=== PATIENT | male | born 1970 | race Caucasian/White ===

== ENCOUNTER 2019-07-18 09:35 | Outpatient (CLI) | payer OTHER, SELFPAY ==
--- NOTE | 2019-07-18 08:36 | DI.RAD_ITS ---
EXAM: XR PELVIS AP INDICATION: R ESCOBAR planning. COMPARISON: No exams were available for comparison TECHNIQUE: 2D digital imaging was performed. FINDINGS: In the right hip, there is moderate joint space narrowing and subchondral sclerosis. Mild spurring i s seen of the acetabulum. In the left hip, there is mild joint space narrowing. The bones appear no rmally mineralized. Vascular calcifications are seen in the soft tissues. IMPRESSION: Osteoarthritis of the hips, right greater than left.
== END 2019-07-18 09:55 ==
PROVIDERS: PCP Family Medicine; Visit Provider Student in an Organized Health Care Education/Training Program
DX: M16.0 Bilateral primary osteoarthritis of hip (principal)
CPT/HCPCS: 72170

== ENCOUNTER 2019-08-01 01:10 | Outpatient (CLI) | payer OTHER, SELFPAY ==
--- NOTE | 2019-08-01 13:15 | DI.RAD_ITS ---
EXAM: RF JOINT INJECTION FLUORO GUID CLINICAL HISTORY: R HIP INJ UNDER FLUORO, RT HIP PAIN, M25.551 TECHNIQUE: Fluoroscopy was utilized by Dr. Carty during right hip injection. COMPARISON: No exams were available for comparison FINDINGS: Hard copy shows intraarticular injection in the right hip. Fluoro time 0.05 minutes. IMPRESSION:
--- NOTE | 2019-08-01 13:23 | W.PROCNOTE ---
Date of service: 08/01/19 Time of Service: 13:23 Procedure Note Date of procedure: 08/01/19 Procedure: Right Hip Injection with Fluoroscopic Guidance Surgeon/Proceduralist/Physician: Omer Carty Procedure Diagnosis: Right Hip Osteoarthritis Procedure Indications: Jaden has had persistent pain of the RIGHT hip and groin. Noninvasive measures have been tried. To serve as both diagnostic and therapeutic, an injection under fluoroscopy was recommended. I had discussed the risks of the procedure and the patient elected to proceed. Procedure Description: Jaden was greeted in the flouroscopy room. The correct side was identified and the consent was reviewed with the patient and signed. The patient was then placed in the supine position on the fluoroscopy table. The RIGHT hip was then prepped with Chloraprep. The anterolateral injection starting point was identiifed by bony landmarks and fluoroscopy. The skin and soft tissue in the tract of the injection was anesthetized with 1% Lidocaine. A spinal needle was then inserted deep into the hip joint at the level of the lateral femoral neck under fluoroscopic guidance. A small amount of Omnipaque solution was injected to confirm intraarticular placement. Once confirmed, the hip was injected with 6cc of 0.5% Bupivicaine and 80mg of Depo-Medrol. A bandaid was placed on the injection site. The patient tolerated the procedure well and noted improvement in pre-injection pain.
[2019-08-01] MEDS: Omnipaque 300 MG/ML 10 ML BTL IJ (13:28)
[2019-08-01] MEDS: methylPREDNISolone ACETATE 80 MG/ML VIAL IM (13:32)
[2019-08-01] MEDS: Bupivacaine 0.5% Pres-Free 10 ML VIAL 6 ML IJ (13:33)
== END 2019-08-01 01:30 ==
PROVIDERS: PCP Family Medicine; Visit Provider Student in an Organized Health Care Education/Training Program
DX: M25.551 Pain in right hip (principal); M16.11 Unilateral primary osteoarthritis, right hip
CPT/HCPCS: 20610; 77002; J1040

== ENCOUNTER 2019-08-08 10:52 | Outpatient (CLI) | payer OTHER, SELFPAY ==
[2019-08-08 12:13] LABS: TSH 3.73 uIU/mL (0.36-3.74)
== END 2019-08-08 11:12 ==
PROVIDERS: PCP Family Medicine; Visit Provider Family Medicine
DX: E03.9 Hypothyroidism, unspecified (principal)
CPT/HCPCS: 36415; 84443

== ENCOUNTER 2019-11-22 08:21 | Outpatient (CLI) | payer OTHER, SELFPAY ==
[2019-11-22 11:16] LABS: HCT 43.1 % (40.0-50.0); HGB 14.3 g/dL (13.5-17.5); Mean Corp. HGB Concentration 33.2 g/dL (32.0-36.0); Mean Corpuscular Hemoglobin 28.5 pg (27.0-33.0); Mean Platelet Volume 8.8 fL (8.0-11.0); Platelet Count 320 x1000/uL (130-400); RBC 5.01 m/cumm (4.50-6.00); RBC Distribution Width 12.9 % (11.8-14.1); White Blood Cell Count 5.79 k/cumm (4.4-10.8)
[2019-11-22 12:32] LABS: Anion Gap 7.7 mmol/L (3-11); BUN 21 mg/dL (7-18); CO2 24.3 mmol/L (21.0-32.0); CREATININE 0.82 mg/dL (0.70-1.30); Calcium 8.7 mg/dL (8.5-10.1); Chloride 105 mmol/L (98-107); Glucose 100 mg/dL (74-106); Potassium 4.4 mmol/L (3.5-5.1); Sodium 137 mmol/L (136-145)
[2019-11-23 12:33] LABS: COVID-19 RT-PCR UVMMC Result Negative (Negative)
== END 2019-11-22 08:41 ==
PROVIDERS: PCP Family Medicine; Visit Provider Student in an Organized Health Care Education/Training Program
DX: M25.551 Pain in right hip (principal); M16.11 Unilateral primary osteoarthritis, right hip; Z11.59 Encounter for screening for other viral diseases; Z01.818 Encounter for other preprocedural examination; Z01.812 Encounter for preprocedural laboratory examination
CPT/HCPCS: 36415; 80048; 85027; 86850; 86900; 86901; U0003

== ENCOUNTER 2019-11-26 06:04 | Observation (INO) | payer OTHER, SELFPAY ==
[2019-11-26] VITALS (9 sets, daily range): BP systolic 99–140; BP diastolic 56–89; PULSE 55–71; RESP 11–21; TEMP 35.1–36.6; O2SAT 92–100
[2019-11-26] MEDS: Celecoxib 200 MG CAP 400 MG PO (06:39)
[2019-11-26] MEDS: Acetaminophen 500 MG TAB 1000 MG PO ×2 (06:39→14:14)
[2019-11-26] MEDS: Lactated Ringers 1,000 ML 80 ML IV (07:00)
--- NOTE | 2019-11-26 07:28 | PDOC.DSDIS_ITS ---
Discharge Plan Disposition Patient Disposition: HOME Condition: Good Discharge Details Reason For Visit: (R) TOTAL HIP Admit Date/Time: 11/26/19 06:04 Admit Provider: Omer Carty Attending Provider: Omer Carty Primary Care Provider: Guy Saini [facility] Course Hospital Course: Patient was admitted to the medical/surgical floor following the procedure. The surgery was tolerated well without any notable medical, surgical, or anesthetic complications. Mobilization began postoperatively. He was voiding spontaneously. Vitals were stable. Physical therapy worked with the patient and was cleared for discharge home. No acute medical issues. Pain was contro lled on oral regimen. Home Meds and New Rx's Prescriptions: New aspirin 81 mg tablet,delayed release (DR/EC) 81 mg PO BID Qty: 60 RF: 0 acetaminophen 500 mg tablet 1,000 mg PO Q8H PRN (Reason: pain) Qty: 90 RF: 3 pantoprazole 40 mg tablet,delayed release (DR/EC) 40 mg PO DAILY Qty: 30 RF: 0 ibuprofen 600 mg tablet 600 mg PO TID PRNQty: 90 RF: 3 oxycodone 5 mg tablet 5 mg PO Q4H Qty: 18 RF: 0 Continued metoprolol succinate 50 mg tablet extended release 24 hr 50 mg PO HS RF: 0 turmeric root extract 500 mg capsule 500 mg PO DAILY RF: 0 levothyroxine 150 mcg capsule 150 mcg PO DAILY Qty: 90 RF: 3 Discharge Instructions Additional Instructions: Dr. Carty's Total Hip Discharge Instructions Activity: The most important activity is to walk. You should try to take short walks a few times a day. You have no restrictions on movement or positioning, but do not try to force what you do. You will find some stiffness and weakness with hip flexion (lifting your knee). Do not try to strengthen this too early, continue to practice walking and stairs and this will come. - Outpatient physical therapy can be helpful to help return you to a normal gait and improve your flexibility and strength. This can start around 2 weeks. For most patients, it?s not necessary. Usually this is determined at the time of discharge or at the first post-operative visit. - You should wear the ALEA hose on both legs for 2 weeks. You may remove those at night. These prevent blood pooling and swelling. Dressing: Keep the surgical dressing in place for at least one week, although it may stay in place untill follow-up. It may get wet after 3 days but avoid soaking the dressing. If it gets wet, just lightly pat dry. Most people prefer to cover the dressing with some ClingWrap, Saran Wrap, to keep it dry. After the first week it may be removed if desired and then replaced with light gauze and tape or nothing. It is important to always keep some gauze or the dressing between skin folds, especially when you are sitting, so the incision is not folded over on itself at the belly fold. Medications: - You should take Tylenol and an anti-inflammatory Ibuprofen as your primary pain control medications - You have been prescribed a stronger pain medication Oxycodone for breakthrough pain, take as needed as prescribed. - You have also been prescribed a stomach acid reduction agent Pantoprozole to help reduce stomach acid and reflux. - You will be taking Aspirin 81mg twice a day for DVT prevention unless instructed otherwise. - If you have constipation you should take Colace or Miralax (both [id number]). It takes most people 3-4 days to have a bowel movement. Follow-up: 2 weeks. If you have any acute concerns or questions, please do not hesitate to contact the office at [phone]. You may contact Dr. Carty with any questions after hours through the hospital at [phone] or on his cell phone at [phone]. Referrals: Omer Carty MD [ [facility] STAFF PHYSICIAN] - Activity:: Activity as Tolerated Equipment/Supplies:: Walker Diet:: As Tolerated DS: Diagnosis Discharge Diagnosis (1) Osteoarthritis of right hip: Status: Acute
[2019-11-26] MEDS: ceFAZolin 2 GM/50 ML BAG IVPB (08:04)
[2019-11-26] MEDS: Bupivacaine 0.25% Pres-Free 30 ML VIAL (08:32)
[2019-11-26] MEDS: Ketorolac 30 MG/ML VIAL (08:33)
--- NOTE | 2019-11-26 09:09 | DI.RAD_ITS ---
EXAM: XR HIP RT IN OR CLINICAL HISTORY: OA RIGHT HIP TECHNIQUE: 2D and realtime digital imaging was performed. Fluoroscopy was provided in the OR COMPARISON: No exams were available for comparison FINDINGS: C-arm fluoroscopy was utilized by Dr. Carty during right total hip joint replacement. Hard copy s hows placement of total hip joint replacement on the right. Fluoroscopy time, 45.2 seconds. IMPRESSION: RADIATION DOSE DELIVERED: Total DLP
[2019-11-26] MEDS: oxyCODONE 5 MG TAB PO (10:42)
[2019-11-26] MEDS: Pantoprazole 40 MG TABCR PO (11:01)
--- NOTE | 2019-11-26 11:05 | IN_ITS ---
Date of service: 11/26/19 Time of Service: 11:05 PT Notes Visit Reasons: (R) TOTAL HIP Physical Therapy Inpatient Initial Evaluation Date: 11/26/2019 Referring Doctor: Omer Carty MD PT Orders: PT CONSULT: Status post Ortho surgery. Status post right ESCOBAR. Precautions: Fall. Standard. WBAT on R LE. Patient Profile/Admitting Diagnosis: Eugenio is a 49-year-old male with primary unilateral osteoarthritis of the right hip and is status post right total hip arthroplasty on postoperative day 0. PMHX: Medical History GERD (gastroesophageal reflux disease) (Chronic) Sami's thyroiditis (Acute) History of tobacco use (Acute) 20 years of use Hypertension (Chronic) Hypothyroid (Chronic) Sarcoidosis (Acute) Spondylolisthesis (Acute) Surgical History History of endoscopy (Acute) 2010, [facility] Hx of colonoscopy (Chronic) 2010, [facility] Social History/Home Situation: Patient lives with and 2 daughters in a 2 floor house with 10 steps to enter and rails on both sides. He has another flight of steps to the second floor of the house where their bedroom is that he states that he can stay on the first floor if he needs to while recovering from the surgery. He is independent with all aspects of ADLs without the need for an ambulatory device nor adaptive equipment. He hopes to go back full-time at work once he is safe to do so. Equipment Owned/DME: Bilateral axillary crutches Subjective: When patient was asked to stand up from the edge of the bed, This feels awesome! I have never felt this great standing up for a long time, I feel great! Objective: General Observation: Mepilex Ag over surgical incision. IV in the R UE. Mental Status: Alert and oriented x4 Pain: Patient reports cramping pain along the length of the middle thigh on the right side that subsided with ambulation activity. ROM: Right Upper Extremity: Shoulder Flexion WFL. Shoulder abduction WFL. Elbow flexion WFL. Wrist flexion WFL. Opening and closing of hand WFL. Left Upper Extremity: Shoulder Flexion WFL. Shoulder abduction WFL. Elbow flexion WFL. Wrist flexion WFL. Opening and closing of hand WFL. Right Lower Extremity: Hip flexion WFL. Hip abduction WFL. Knee flexion WFL. Ankle dorsiflexion WFL. Ankle plantarflexion WFL. Left Lower Extremity: Hip flexion WFL. Hip abduction WFL. Knee flexion WFL. Ankle dorsiflexion WFL. Ankle plantarflexion WFL. Strength: Right Upper Extremity: Shoulder flexors 5/5. Shoulder abductors 5/5. Elbow flexo rs 5/5. Elbow extensors 5/5. Yeast Pumper strong. Left Upper Extremity: Shoulder flexors 5/5. Shoulder abductors 5/5. Elbow flexors 5/5. Elbow extensors 5/5. Yeast Pumper strong. Right Lower Extremity: Hip flexors 4-/5. Hip abductors 4-/5. Knee flexors 4/5. Knee extensors 4/5. Ankle dorsiflexors 5/5. Ankle plantarflexors 5/5. Left Lower Extremity:Hip flexors 5/5. Hip abductors 5/5. Knee flexors 5/5. Knee extensors 5/5. Ankle dorsiflexors 5/5. Ankle plantarflexors 5/5. Sensation: Intact as to pain and pressure on bilateral lower extremities. Bed Mobility/Transfers: Supine to sit modified independent with HOB flat Sit to supine modified independent with [facility] flat Sit to stand supervision, minimal verbal cueing to use both hands for support for push off, requires use of front wheeled walker Stand to sit supervision, minimal verbal cueing to use both hands for support to control descent Bed to chair supervision, minimal verbal cueing to use both hands for support for push off, requires use of front wheeled walker Chair to bed supervision, minimal verbal cueing to use both hands for support for push off, requires use of front wheeled walker Gait: Patient tolerated level surface ambulation 150 feet using front wheeled walker with step through gait pattern requiring all standby assist and wheelchair follow of PT. No report of lightheadedness or dizziness received throughout activity. Balance: Static Sitting: Normal Dynamic Sitting: Normal Static Standing: Fair Dynamic Standing: Fair Special Tests: Mobility Limitations Standardized Measure [facility] AM-PAC 6 clicks Basic Mobility Inpatient Short Form: Raw Score: 23 CMS Score: 11% deficit Informed Consent/Education: Patient instructed in purpose of PT consult and plan of care. Assessment: Eugenio demonstrates the need for an assistive ambulatory device for all mobility ADL performance, achiness and cramping pain on the right thigh, and functional mobility decline due to postoperative status. Eugenio is a 49-year-old male with primary unilateral osteoarthritis of the right hip and is status post right total hip arthroplasty on postoperative day 0. Patient presents with clinical signs and symptoms consistent with current/admitting diagnoses that have resulted to mobility limitations, gait instability, and generalized weakness, as demonstrated by the following impairment level findings: 1. Decreased strength to right hip major muscle groups 2. Impaired standing balance 3. Impaired activity tolerance Impairments are contributing to the following functional limitations: 1. Inability to safely ambulate without assistive device and physical assistance 2. Increase completion time for mobility ADL performance 3. Increased fall risk 4. Inability to negotiate steps alone safely Patient is assessed as a 15787 moderate complexity based on the following: History: 49-year-old male with impairment level findings, functional limitations, and past medical history as listed above Examination: Demonstrable impairment in strength, balance, and mobility level n with underlying impairments and functional limitations as documented above Presentation:Evolving Decision Makin moderate complexity Goals: Goals X 1 day 1. Supine-Sit independent 2. Sit-Supine independent 3. Sit-Stand independent 4. Stand-Sit independent 5. Bed-Chair independent 6. Chair-Bed independent 7. Independent gait on level surface with use of least restrictive device for at least 300 feet without report of pain nor dyspnea 8. Independent stair negotiation while holding onto bilateral rails for at least 10 steps without report of pain nor dyspnea 9. Independent with home exercise program 10. Good static and dynamic standing balance/tolerance Plan of Care/Treatment Plan: 1-2x/day, 7 days/week x 1 week. Plan of care has been reviewed with the [facility] providing the service under Physical Therapy direction. Initiate Physical Therapy intervention for strengthening, bed mobility, transfers, gait, stairs, balance training, use of assistive device. PT Intervention: Session today consisted of initial physical therapy evaluation as well as education and training on mobility ADL performance using front wh eeled walker. DISCHARGE RECOMMENDATIONS: Discharge to home when medically cleared. Will benefit from the use of a front wheeled walker to maximize independence in the home setting. May benefit from skilled physical therapy services according to orthopedic surgeon's timeline recommendations. Patient will be educated and trained on home exercise program per ESCOBAR exercise protocol. TREATMENT CODE/TIME: 03517 x 30 minutes beginning at 11:05 AM. Thank you very much for this referral. Dejah Florence PT, DPT, CLT [facility] [place], [place]
[2019-11-26] MEDS: ceFAZolin 1 GM/50 ML BAG IVPB (12:12)
--- NOTE | 2019-11-26 12:23 | W.PM.DS.N ---
Date of service: 11/26/19 Time of Service: 12:23 DS: Diagnosis Discharge Diagnosis (1) Osteoarthritis of right hip: Status: Acute Discharge Plan Disposition Patient Disposition: HOME Condition: Good Discharge Details Reason For Visit: (R) TOTAL HIP Admit Date/Time: 11/26/19 06:04 Admit Provider: Omer Carty Attending Provider: Omer Carty [facility] Course: Patient was admitted to the medical/surgical floor following the procedure. The surgery was tolerated well without any notable medical, surgical, or anesthetic complications. Mobilization began postoperatively. He was voiding spontaneously. Vitals were stable. Physical therapy worked with the patient and was cleared for discharge home. No acute medical issues. Pain was controlled on oral regimen. Home Meds and New Rx's Prescriptions: New aspirin 81 mg tablet,delayed release (DR/EC) 81 mg PO BID Qty: 60 RF: 0 acetaminophen 500 mg tablet 1,000 mg PO Q8H PRN (Reason: pain) Qty: 90 RF: 3 pantoprazole 40 mg tablet,delayed release (DR/EC) 40 mg PO DAILY Qty: 30 RF: 0 ibuprofen 600 mg tablet 600 mg PO TID PRNQty: 90 RF: 3 oxycodone 5 mg tablet 5 mg PO Q4H Qty: 18 RF: 0 Continued metoprolol succinate 50 mg tablet extended release 24 hr 50 mg PO HS RF: 0 turmeric root extract 500 mg capsule 500 mg PO DAILY RF: 0 levothyroxine 150 mcg capsule 150 mcg PO DAILY Qty: 90 RF: 3 Discharge Instructions Additional Instructions: Dr. Carty's Total Hip Discharge Instructions Activity: The most important activity is to walk. You should try to take short walks a few times a day. You have no restrictions on movement or positioning, but do not try to force what you do. You will find some stiffness and weakness with hip flexion (lifting your knee). Do not try to strengthen this too early, continue to practice walking and stairs and this will come. - Outpatient physical therapy can be helpful to help return you to a normal gait and improve your flexibility and strength. This can start around 2 weeks. For most patients, it?s not necessary. Usually this is determined at the time of discharge or at the first post-operative visit. - You should wear the ALEA hose on both legs for 2 weeks. You may remove those at night. These prevent blood pooling and swelling. Dressing: Keep the surgical dressing in place for at least one week, although it may stay in place untill follow-up. It may get wet after 3 days but avoid soaking the dressing. If it gets wet, just lightly pat dry. Most people prefer to cover the dressing with some ClingWrap, Saran Wrap, to keep it dry. After the first week it may be removed if desired and then replaced with light gauze and tape or nothing. It is important to always keep some gauze or the dressing between skin folds, especially when you are sitting, so the incision is not folded over on itself at the belly fold. Medications: - You should take Tylenol and an anti-inflammatory Ibuprofen as your primary pain control medications - You have been prescribed a stronger pain medication Oxycodone for breakthrough pain, take as needed as prescribed. - You have also been prescribed a stomach acid reduction agent Pantoprozole to help reduce stomach acid and reflux. - You will be taking Aspirin 81mg twice a day for DVT prevention unless instructed otherwise. - If you have constipation you should take Colace or Miralax (both aytx-oao-aptvzzo). It takes most people 3-4 days to have a bowel movement. Follow-up: 2 weeks. If you have any acute concerns or questions, please do not hesitate to contact the office at [phone]. You may contact Dr. Carty with any questions after hours through the hospital at [phone] or on his cell phone at [phone]. Referrals: Omer Carty MD [ [facility] STAFF PHYSICIAN] - Activity:: Activity as Tolerated Equipment/Supplies:: Walker Diet:: As Tolerated Discharge Orders Discharge Orders: Discharge Order (Routine); Ordered 11/26/19 Ordered By: Omer Carty DS: Summary Status at Discharge Functional status at discharge: uses cane/walker Overall status at discharge: patient is progressing back to baseline Mental Status: mental status grossly normal Speech and Movement: speech and movement normal Mood: congruent mood Affect: normal affect Exam Narrative Exam Narrative: Comfortable. Resting in the chair. No pain to ER/IR of the hip. Palpable DP/PT. Psych Mental Status: mental status grossly normal Speech and Movement: speech and movement normal Mood: congruent mood Affect: normal affect DS: Data Vitals/I&O Vitals and I&O: Vital Signs Temperature 36.4 C L 11/26/19 10:44 Temperature Source Tympanic 11/26/19 10:44 Pulse 55 L 11/26/19 10:44 Pulse Rhythm Regular 11/26/19 06:05 Respiratory Rate 14 11/26/19 10:44 Respiratory Effort Non-Labored 11/26/19 06:05 Respiratory Depth Normal 11/26/19 06:05 Respiratory Pattern Normal 11/26/19 06:05 Blood Pressure 130/87 11/26/19 10:44 Pulse Oximetry 100 11/26/19 10:44 Oxygen Delivery Method Room Air 11/26/19 10:44 Oxygen Flow Rate 0 11/26/19 10:44 Pain Level 2 11/26/19 11:42 Intake & Output 11/25/19 11/26/19 11/26/19 23:59 11:59 23:59 Intake Total 870 / 870 Output Total 100 / 100 Balance 770 / 770 Weight 86 kg Intake: IV 870 / 870 Output: Estimated Blood Loss 100 / 100 Other: Emesis Description None [facility] Medical History GERD (gastroesophageal reflux disease) (Chronic) Sami's thyroiditis (Acute) History of tobacco use (Acute) 20 years of use Hypertension (Chronic) Hypothyroid (Chronic) Sarcoidosis (Acute) Spondylolisthesis (Acute) Surgical History History of ankle surgery (Acute) R ankle bone chip removal w/spinal History of endoscopy (Acute) 2010, [facility] Hx of colonoscopy (Chronic) [facility] Family History Mother Hyperlipidemia Hypertension Father Hyperlipidemia Sister Hypertension Brother No problems noted. Daughter No problems noted. Daughter No problems noted. Maternal Grandfather , age 70 Hyperlipidemia Stroke Paternal Grandfather , age 82 Alcohol abuse Cancer Heart disease Hypertension Maternal Grandmother , age 85 Diabetes Social History Smoking/Tobacco Use Status: Former Tobacco Use Second Hand Exposure: Yes Alcohol Intake: current Alcohol Intake frequency: a few times a week Drug use: Never Caregiver/Support person: No Household members: spouse and children Communication Needs: None Do you need help understanding health information?: Never Pets and animals: Yes Pets and animals: dog(s) Sexually active: Yes Do you think of yourself as: straight/heterosexual Current gender identity: male What is your relationship status?: How often do you talk on the phone with friends or family?: three or more times per week How often do you get together with friends or relatives?: decline to answer How often do you attend pentecostalism or anabaptist services?: 1-3 times per year Do you belong to any clubs or organized social groups?: yes Panel score (0-1 are the most socially isolated patients): 3 What type of physical activity do you participate in: walking Duration: 15-30 minutes/day Frequency: 3-4 times per week Maria L/Anabaptism: No preference Special maria l needs: No Seatbelt use: always Drive intox or ride w/intox route cdl driver: No
--- NOTE | 2019-11-26 14:09 | ROE_ITS ---
Date of service: 11/26/19 Time of Service: 09:21 Operative Note Operative Note DATE OF PROCEDURE: 11/26/19 PRE-OP DIAGNOSIS: Right Hip Osteoarthritis POST-OP DIAGNOSIS: same PROCEDURE: Right Anterior Total Hip Arthroplasty SURGEON: Omer Carty APPLICATION DEVELOPMENT DIRECTOR: Mckay Duckworth ANESTHESIA: spinal ESTIMATED BLOOD LOSS: 150 PATHOLOGY: none sent COMPLICATIONS: None Patient was transported to: PACU Patient's condition: stable Implants: 1. Depuy [place] Acetabular Component, 50 mm 2. Depuy Acetabular Liner, 50 x 32 mm 3. Depuy Corail coxa vara femoral Stem, Size 11 4. Depuy Altrx Ceramic Femoral Head, Size 32+5 mm Indications: I have seen Eugenio in clinic for symptoms of hip arthritis, confirmed with radiographic findings. He has exhausted nonoperative methods and was having significant limitations in daily function and desired better function and less pain. I discussed the technical details of a hip replacement. I explained the risks of the procedure to include, but not limited to, bleeding, infection, pain, stiffness, fracture, damage to nerves and vessels, damage to muscles and tendons, loosening, instability, leg length inequality, need for repeat procedure, blood clot and cardiopulmonary demise. Despite these risks, Eugenio elected to proceed. Findings: There was significant signs of arthritis throughout most notably of the superior acetabulum and the superior aspect of the femoral head. Procedure Description: Eugenio was greeted in the preoperative holding area where the correct side was identified and marked. The consent was reviewed with the patient and signed. The history and physical was updated. All questions were answered. He was taken back to the operating room. A spinal anesthestic was then administered. The patient was placed into the supine position on the operating room table. The patient was then positioned onto the ARCH table. Both feet were wrapped with Webrill cotton wrap along with Coban. The feet were placed in specialized boots for the ARCH table, well seated within the boot and secured. SCDs were applied. The patient was then slid down onto a peroneal post and the nonoperative leg was secured in a leg hale attached to the table. The operative side was placed into the ARCH table attachment and bed height and positioning was secured. A preoperative AP pelvis was obtained to serve as a reference for determining leg lengths. Prophylactic antibiotics in the form of cefazolin were administered. 1g of Tranxemic Acid was given intravenously within 30 minutes of incision. The right leg was then prepped with Chloraprep and draped in a standard fashion. A second prep with Chloraprep was performed prior to placement of a shower-curtain type drape with Iodine impregnated skin protection. A timeout to confirm correct identity, side and site, procedure, allergies, anesthesia, and medical concerns was performed. An obliquely oriented incision was made starting lateral to the ASIS and running distal over the Tensor Fascia Aga (TFL) muscle belly toward the fibular head, approximately 10cm. The skin and soft tissue was dissected sharply, through Jose?s fascia, and to the fascia of the TFL. With the fascia and superior border of the IT band identified, the fascia was incised with a new knife just above any perforators from the IT band. The TFL muscle belly was bluntly dissected away from the fascia and moved laterally. The fat between TFL and rectus was identified to ensure the dissection was not within the TFL. Blunt dissection created space between abductors and the capsule and retractor was placed over the lateral femoral neck. The fibers of the rectus femoris tendon were identified and these were freed from the anterior capsule. A second cobra retractor was placed around the medial femoral neck. The TFL was further retracted laterally to show the deep fascia. Careful dissection through this layer identified three main crossing vessels of the lateral femoral circumflex. These were cauterized in multiple locations and then cut without any noticeable bleeding. The TFL was further released bluntly from the deep fascia to expose anterior hip capsule and fat the Chandra orthopaedic retractor was then placed beneath the TFL and against sartorius and medial soft tissues to protect and retract the soft tissues. A T-capsulotomy was then performed starting at the superior lateral acetabulum and moving distally to the intertrochanteric ridge. These capsular flaps were tagged with a No. 1 Ethibond and elevated from within. The capsular flaps were released to the shoulder of the lateral neck and to the lesser trochanter to give excellent visualization of the proximal femur. A neck osteotomy was performed using an oscillating saw based on preoperative templates. This cut started in the shoulder and of the lateral neck and exited medially. The saw was at all times directed medially to avoid injury to the greater trochanter. 6cm of traction was applied to the leg and the osteotomy opened. The femoral head was removed with a corkscrew, making sure to protect the TFL on its exit. This was measured on the back table to determing the starting reamer size. Portions of the rectus obscuring visualization were minimally elevated off the superior acetabulum. An anterior retractor was placed over the anterior wall between capsule and labrum and attached to the Gripper retraction system. A posterior retractor was placed similarly. This provided excellent visualization. The contents of the cotyloid fossa were removed with electrocautery and the labrum was removed with a knife. There was significant chondromalacia of the superior acetabulum. Acetabular reaming began with a 46mm reamer. This first reaming was directed anterior to posterior and medial to get down to the true floor. This was inspected and reamed until the true floor was reached. The anterior retractor was then released and entry and exit was provided by traction on the capsular flaps. I then reamed sequentially up to a 50mm reamer where good fit was obtained. The larger reamers were oriented based on anatomical reference of the anterior and lateral martinez to ensure proper abduction and anteversion. Pos itioning and size was confirmed with the fluoroscopy. A 50mm Depuy [place] acetabular component was selected. The deep tissues were irrigated. The acetabular component was then impacted in a position of about 40-45 degrees of abduction and 15-20 degrees of anteversion, using the patient?s anatomy as the ultimate landmark. Fluoroscopy was used to confirm this. There was excellent property technician of the acetabular component and the inserting handle was removed. The acetabular liner, Depuy [id number] polyethylene liner, was inserted and lined up with the tines of the acetabular component. There was no soft tissue interposition. The liner was then impacted into position and confirmed to be well-seated. A portion of the andrew-articular cocktail was then injected around the acetabulum into the capsule and periosteum. This cocktail consisted of 50cc of 0.25% Bupivicaine and 20cc of Exparel, expanded to a total of 120cc. Traction was released from the femur. The leg was rotated to 120 degrees. Any remaining medial capsule was released until the lesser trochanter was easily palpable. A Jenkins retractor was placed medially. The lateral capsule was further released into the shoulder to allow access to the greater trochanter. A Jenkins retractor was placed over the greater trochanter which allowed the trochanter to flip in front of the capsule for excellent exposure. The leg was brought down into maximal extension and 20 degrees of adduction while ensuring there was no impingement on the acetabulum. Any remnant capsule within the trochanter was released. Piriformis and obturator externis were identified and protected. There was excellent access to the proximal femur. The lateral neck remnant was removed with a rongeur. A blunt canal probe was used to identify the canal and trajectory for later broaching. A box osteotome initiated the broach course. A small curved rasp and a curved curette were used to work laterally. Broaching then began with a size 8 Corail broach. This was inserted manually around the trochanter and into the canal before mallet blows. The broach was seated to a few millimeters below the cut level based on the neck cut and the preoperative template. Sequential broaching was continued with the Yodo1 pneumatic broaching device until a tight fit was obtained with good rotational control of the femur. A trial coxa vara neck was inserted along with a +5 trial head. The leg was brought out of extension and adduction and then reduced with traction and internal rotation. The leg was stable anteriorly in a position of 30 degrees of extension and 90 degrees of external rotation. Fluoroscopy was used to ensure there was no fracture and the stem was seated well. Leg lengths were checked with an AP pelvis and pelvic reference points. Clinkle navigation system was used to confirm appropriate positioning and leg length and offset. Once content with the desired offset and leg lengths, the leg was brought back into extension, external rotation and adduction. The periosteum and surrounding tissue was injected with remaining portion of the andrew-articular cocktail. The proximal femur was irrigated as well as the deep tissues. The Depuy Corail coxa vara stem, size 11, was then manually inserted into the proximal femur making sure to control rotation. It was then malleted into position with light blows, giving breaks to allow bone expansion and decrease risk of fracture. The selected Depuy Altrx Ceramic Head, size 32+5mm, was then placed onto the clean and dry trunnion and secured with impaction onto the tapered fit. The leg was brought back out of extension and adduction and reduced with traction and internal rotation. Stability was confirmed with no shuck at 90 degrees of external rotation and 30 degrees of extension. No impingement through range of motion arc. Final x-ray images were obtained with fluoroscopy to confirm adequate positioning and no intraoperative fracture. The deep tissues were thoroughly irrigated with Irrisept chlorhexadine solution. The second dose of TXA 1g was administered intravenously. The capsule was then reapproximated with the previously placed Ethibond sutures. The TFL fascia was finally closed with a No. 2 Stratafix, barbed suture. Deep tissues were then reapproximated with 0 Vicryl and a running 2-0 Vicryl. The skin was closed with a running 4-0 Monocryl in a subcuticular fashion. This was reinforced with skin glue. A Mepilex silver dressing was applied. At the end of the case, all counts were correct. Eugenio was transferred to the hospital bed without difficulty and suffering no apparent complication. Eugenio has a good prognosis. Physical therapy will start today and without restrictions, weight-bearing as tolerated. Aspirin 81mg BID will be used for DVT prophylaxis.
--- NOTE | 2019-11-26 14:12 | PT.INTREAT ---
Date of service: 11/26/19 Time of Service: 14:13 PT Notes Visit Reasons: (R) TOTAL HIP Inpatient Physical Therapy Treatment Note [facility] Date: 11/26/19 PRECAUTIONS: WBAT R SUBJECTIVE: Jaden is agreeable to participating in PT. He is ready to be discharged to home. OBJECTIVE: PAIN: No c/o pain BED MOBILITY/TRANSFERS Sit-stand: I Stand-sit: I Bed-Chair: I Chair-bed: I GAIT Assistive Device: FWW B Axillary Crutches Weight bearing: WBAT R Assist: S Distance: 200' with FWW 200' with B axillary crutches Deviation: Step through gait pattern utilized STAIRS: Up/down 12?4 and 8?6 using B rails and a step over pattern, independently ASSESSMENT: Patient tolerated session well, demonstrating independence with sit<>stand transfers as well as stair negotiation. He also demonstrates good safety awareness and appropriate ml with use of axillary crutches with gait training. PLAN: As per primary PT TREATMENT CODE/TIME: 25 minutes; 14542 ?2
[2019-11-26] MEDS: Ibuprofen 800 MG TAB PO (14:13)
--- NOTE | 2019-11-26 14:15 | PDOC.CMPRO ---
- If Service Date Differs Date of service: 11/26/19 Time of Service: 14:15 Care Management Progress Note S/O: CM met with Jaden in the room, he states he needs a FWW which CM provided and requested PT assemble. Jaden states he has support at home including transportation. Jaden denies any additional needs at this time, and will follow up with as directed. A: Jaden is a 49 year old male admitted for a total right hip. P: Discharge home with family support and follow up with . FWW provided prior to discharge.
--- NOTE | 2019-11-27 08:48 | INDS_ITS ---
Date of service: 11/27/19 PT Notes Visit Reasons: (R) TOTAL HIP Physical Therapy Inpatient Discharge Summary Date: 11/27/2019 Date of service: 11/26/2019 only This is a clinical summary of care provided on the duration of dates listed above. No charge was made in the completion of this documentation. She is Referring Doctor: Omer Carty MD PT Orders: PT CONSULT: Status post Ortho surgery. Status post right ESCOBAR. Precautions: Fall. Standard. WBAT on R LE. Patient Profile/Admitting Diagnosis: Eugenio is a 49-year-old male with primary unilateral osteoarthritis of the right hip and is status post right total hip arthroplasty on postoperative day 1. PMHX: Medical History GERD (gastroesophageal reflux disease) (Chronic) Sami's thyroiditis (Acute) History of tobacco use (Acute) 20 years of use Hypertension (Chronic) Hypothyroid (Chronic) Sarcoidosis (Acute) Spondylolisthesis (Acute) Surgical History History of endoscopy (Acute) 2010, [facility] Hx of colonoscopy (Chronic) 2010, [facility] Social History/Home Situation: Patient lives with and 2 daughters in a 2 floor house with 10 steps to enter and rails on both sides. He has another flight of steps to the second floor of the house where their bedroom is that he states that he can stay on the first floor if he needs to while recovering from the surgery. He is independent with all aspects of ADLs without the need for an ambulatory device nor adaptive equipment. He hopes to go back full-time at work once he is safe to do so. Equipment Owned/DME: Bilateral axillary crutches Subjective: NT Objective: General Observation: NT Mental Status: NT Pain: NT ROM: Right Upper Extremity: Shoulder Flexion WFL. Shoulder abduction WFL. Elbow flexion WFL. Wrist flexion WFL. Opening and closing of hand WFL. Left Upper Extremity: Shoulder Flexion WFL. Shoulder abduction WFL. Elbow flexion WFL. Wrist flexion WFL. Opening and closing of hand WFL. Right Lower Extremity: Hip flexion WFL. Hip abduction WFL. Knee flexion WFL. Ankle dorsiflexion WFL. Ankle plantarflexion WFL. Left Lower Extremity: Hip flexion WFL. Hip abduction WFL. Knee flexion WFL. Ankle dorsiflexion WFL. Ankle plantarflexion WFL. Strength: Right Upper Extremity: Shoulder flexors 5/5. Shoulder abductors 5/5. Elbow flexors 5/5. Elbow extensors 5/5. Chief Communications Officer strong. Left Upper Extremity: Shoulder flexors 5/5. Shoulder abductors 5/5. Elbow flexors 5/5. Elbow extensors 5/5. Chief Communications Officer strong. Right Lower Extremity: Hip flexors 4-/5. Hip abductors 4-/5. Knee flexors 4/5. Knee extensors 4/5. Ankle dorsiflexors 5/5. Ankle plantarflexors 5/5. Left Lower Extremity:Hip flexors 5/5. Hip abductors 5/5. Knee flexors 5/5. Knee extensors 5/5. Ankle dorsiflexors 5/5. Ankle plantarflexors 5/5. Sensation: Intact as to pain and pressure on bilateral lower extremities. Bed Mobility/Transfers: Supine to sit modified independent with HOB flat Sit to supine modified independent with HOB flat Sit to stand modified independent requires use of front wheeled walker Stand to sit modified independent requires use of front wheeled walker Bed to chair modified independent requires use of front wheeled walker Chair to bed modified independent requires use of front wheeled walker Gait: Patient tolerated level surface ambulation 200 feet using front wheeled walker with step through gait pattern requiring supervision. No report of lightheadedness or dizziness received throughout activity. Balance: Static Sitting: Normal Dynamic Sitting: Normal Static Standing: Fair Dynamic Standing: Fair Assessment: Eugenio demonstrates the need for an assistive ambulatory device for all mobility ADL performance, achiness and cramping pain on the right thigh, and functional mobility decline due to postoperative status. Eugenio is a 49-year-old male with primary unilateral osteoarthritis of the right hip and is status post right total hip arthroplasty on postoperative day 0. Patient presented with clinical signs and symptoms consistent with current/admitting diagnoses that have resulted to mobility limitations, gait instability, and generalized weakness, as demonstrated by the following impairment level findings: 1. Decreased strength to right hip major muscle groups 2. Impaired standing balance 3. Impaired activity tolerance Impairments contributed to the following functional limitations: 1. Inability to safely ambulate without assistive device and physical assistance 2. Increase completion time for mobility ADL performance 3. Increased fall risk 4. Inability to negotiate steps alone safely Goals: Goals X 1 day 1. Supine-Sit independent MET 2. Sit-Supine independent MET 3. Sit-Stand independent MET 4. Stand-Sit independent MET 5. Bed-Chair independent MET 6. Chair-Bed independent MET 7. Independent gait on level surface with use of least restrictive device for at least 300 feet without report of pain nor dyspnea NOT MET 8. Independent stair negotiation while holding onto bilateral rails for at least 10 steps without report of pain nor dyspnea NOT MET 9. Independent with home exercise program MET 10. Good static and dynamic standing balance/tolerance NOT MET DISCHARGE RECOMMENDATIONS: Discharge to home when medically cleared. Will benefit from the use of a front wheeled walker to maximize independence in the home setting. May benefit from skilled physical therapy services according to orthopedic surgeon's timeline recommendations. Patient will be educated and trained on home exercise program per ESCOBAR exercise protocol. TREATMENT CODE/TIME: NC. Thank you very much for this referral. Dejah Florence PT, DPT, CLT [facility] [place], [place]
== END 2019-11-26 14:35 | disposition home or self-care (01) ==
LOC: PDS 07:28 → MS 10:28 → PDS 13:49 → MS 13:49
PROVIDERS: Admitting Provider Student in an Organized Health Care Education/Training Program; PCP Family Medicine; Visit Provider Student in an Organized Health Care Education/Training Program
PROC: 0SR904A Replacement of Right Hip Joint with Ceramic on Polyethylene Synthetic Substitute, Uncemented, Open Approach (ICD-10-PCS; CPT 27130; principal; 2019-11-26 07:30)
DX: M16.11 Unilateral primary osteoarthritis, right hip (principal); M25.551 Pain in right hip; Z96.641 Presence of right artificial hip joint; K21.9 Gastro-esophageal reflux disease without esophagitis; I10 Essential (primary) hypertension; E03.9 Hypothyroidism, unspecified
CPT/HCPCS: 27130; C1776; 97162; 97530; NC; 73501; G0378; J0690; J1885; J2001

== ENCOUNTER 2019-12-13 11:29 | Outpatient (CLI) | payer OTHER, SELFPAY ==
--- NOTE | 2019-12-13 10:30 | DI.RAD_ITS ---
EXAM: XR HIP RT COMPLETE AP PELVIS INDICATION: s/p R ESCOBAR. COMPARISON: CR XR PELVIS AP from 07/18/2019 XR HIP RT IN OR from 11/26/2019 TECHNIQUE: 2D digital imaging was performed. FINDINGS: There has been no change in the right hip prosthesis. No abnormal bony lucencies are seen. DATA REPOSITORY: RADIATION DOSE DELIVERED:
== END 2019-12-13 11:49 ==
PROVIDERS: PCP Family Medicine; Referring Provider Family Medicine; Visit Provider Student in an Organized Health Care Education/Training Program
DX: M16.11 Unilateral primary osteoarthritis, right hip (principal); Z96.641 Presence of right artificial hip joint
CPT/HCPCS: 73502

== ENCOUNTER 2020-12-04 08:48 | Outpatient (CLI) | payer OTHER, SELFPAY ==
--- NOTE | 2020-12-04 08:45 | DI.RAD_ITS ---
Exam(s) XR HIP RT AP LAT ONLY EXAM: XR HIP RT AP LAT ONLY CLINICAL HISTORY: ANNUAL F/U R ESCOBAR. TECHNIQUE: 2D digital imaging was performed. COMPARISON: No exams were available for comparison FINDINGS: There are stable postsurgical changes of a right total hip replacement. No evidence of hardware fail ure. The bones are intact. The soft tissues are unremarkable. Atherosclerosis. IMPRESSION: Stable right ESCOBAR. DATA REPOSITORY: RADIATION DOSE DELIVERED:
== END 2020-12-04 08:49 | disposition home or self-care (01) ==
LOC: DIORS 08:49
PROVIDERS: PCP Nurse Practitioner Family; Referring Provider Nurse Practitioner Family; Visit Provider Student in an Organized Health Care Education/Training Program
DX: Z96.641 Presence of right artificial hip joint (principal); Z47.1 Aftercare following joint replacement surgery
CPT/HCPCS: 73502

== ENCOUNTER 2021-01-27 16:06 | Outpatient (CLI) | payer OTHER, SELFPAY ==
[2021-01-27 16:24] LABS: Hemoglobin A1C 5.7 % (<5.7)
[2021-01-27 17:38] LABS: ALT 35 U/L (16-63); AST 18 U/L (15-37); Albumin 4.4 g/dL (3.4-5.0); Alkaline Phosphatase 54 U/L (46-116); Anion Gap 9.3 mmol/L (3-11); BUN 13 mg/dL (7-18); Bilirubin, Total 0.4 mg/dL (0.2-1.0); CO2 28.7 mmol/L (21.0-32.0); CREATININE 0.9 mg/dL (0.70-1.30); Calcium 9.4 mg/dL (8.5-10.1); Calculated LDL 166 mg/dL (<100); Chloride 102 mmol/L (98-107); Cholesterol 251 mg/dL (<200); Glucose 79 mg/dL (74-106); HDL Cholesterol 71 mg/dL (40-60); Potassium 4.5 mmol/L (3.5-5.1); Sodium 140 mmol/L (136-145); TSH 0.47 uIU/mL (0.36-3.74); Total Protein 7.5 g/dL (6.4-8.2); Triglyceride 72 mg/dL (<150)
== END 2021-01-27 16:07 | disposition home or self-care (01) ==
LOC: LBO 16:08
PROVIDERS: PCP Nurse Practitioner Family; Visit Provider Nurse Practitioner Family
DX: I10 Essential (primary) hypertension (principal); E03.9 Hypothyroidism, unspecified; E78.5 Hyperlipidemia, unspecified; Z13.1 Encounter for screening for diabetes mellitus
CPT/HCPCS: 36415; 80053; 80061; 83036; 84443

== ENCOUNTER 2022-02-04 01:32 | Outpatient (CLI) | payer OTHER, SELFPAY ==
--- OUTSIDE RECORDS SUMMARY | 2022-02-04 01:34 | XMS_ITS | Encounter Summary ---
:[address] [facility] Address [address] [place] [address] Care Team Providers Name Role Phone Inocente Chacon MD Primary Care Provider Encounter Details Date Type Department Care Team Description 12/04/2006 Results Only EP5 LUNG CTR MDCer Lung Mynor Mack MD Multidisciplinary - [facility] [address], [place] [id number] Social History Tobacco Use Types Packs/Day Years Used Date Never Assessed Sex Assigned at Date Recorded Not on file documented as of this encounter Plan of Treatment Not on filedocumented as of this encounter Procedures Procedure Name Priority Date/Time Associated Comments Diagnosis T CELL SUBSETS Routine 12/04/2006 12:00 Results f or this EDT procedure are i n the results section. AFB CULTURE/SMEAR, Routine 12/04/2006 11:44 Resul ts for this RESPIRATORY EDT procedure are i n the results section. FUNGUS CULTURE, Routine 12/04/2006 11:44 Results for this RESPIRATORY EDT procedure are i n the results section. BACTERIAL Routine 12/04/2006 11:44 Results for this CULTURE/SMEAR, EDT procedure are in RESPIRATORY the results section. VIRUS CULTURE, OTHER Routine 12/04/2006 11:44 Res ults for this EDT procedure are i n the results section. DIFFERENTIAL, LAVAGE Routine 12/04/2006 11:11 Res ults for this FLUID EDT procedure are i n the results section. URINALYSIS WITH Routine 12/04/2006 8:55 Results f or this MICROSCOPIC IF EDT procedure are in POSITIVE the results section. UA REFLEX Routine 12/04/2006 8:55 Results for this EDT procedure are i n the results section. PTT Routine 12/04/2006 8:45 Results for this EDT procedure are i n the results section. PROTIME Routine 12/04/2006 8:45 Results for this EDT procedure are i n the results section. COMPLETE BLOOD COUNT Routine 12/04/2006 8:45 Resu lts for this EDT procedure are i n the results section. BUN Routine 12/04/2006 8:45 Results for this EDT procedure are i n the results section. ALT Routine 12/04/2006 8:45 Results for this EDT procedure are i n the results section. AST Routine 12/04/2006 8:45 Results for this EDT procedure are i n the results section. ALKALINE PHOSPHATASE Routine 12/04/2006 8:45 Resu lts for this EDT procedure are i n the results section. CREATININE Routine 12/04/2006 8:45 Results for this EDT procedure are i n the results section. CALCIUM Routine 12/04/2006 8:45 Results for this EDT procedure are i n the results section. BILIRUBIN, TOTAL Routine 12/04/2006 8:45 Results for this EDT procedure are i n the results section. CYTOPATHOLOGY Routine 12/04/2006 0:00 Results for this EDT procedure are i n the results section. CYTOPATHOLOGY Routine 12/04/2006 0:00 Results for this EDT procedure are i n the results section. documented in this encounter Results IMMUNODEFICIENCY PANEL (12/04/2006 12:00 EDT) Pathologist Sig nature CD3 94 % [facility] CD4 73 % [facility] CD8 19 % [facility] Absolute CD4 CD4:CD8 Ratio = 3.83 per UL [facility] Specimen Performing Organization Address City/[facility] Phon e Number [facility] [address] [place] [address] SERVICES [facility] [address] [place] [address] FUNGUS CULTURE, RESPIRATORY (12/04/2006 11:44 EDT) Specimen Bronchoalveolar Lavage [facility] Description LAB Result No fungi isolated [facility] Report Status Final [facility] [id number] LAB Specimen Performing Organization Address City/[facility]/[place]IP [facility] [place] Phon e Number [facility] [address] [place] [address] SERVICES [facility] [address] [place] [address] VIRUS CULTURE, OTHER (12/04/2006 11:44 EDT) Specimen Bronchoalveolar Lavage [facility] Description LAB Result No virus recovered [facility] Report Status Final [facility] [id number] LAB Specimen Performing Organization Address City/[facility]/ZIP Code Phon e Number [facility] [address] [place] [address] SERVICES [facility] [address] [place] [address] AFB CULTURE/SMEAR, RESPIRATORY (12/04/2006 11:44 EDT) Specimen Bronchoalveolar Lavage [facility] Description LAB Acid Fast No acid-fast bacilli [facility] seen LAB Result No acid-fast bacilli [facility] isolated LAB Report Status Final [facility] [id number] LAB Specimen Performing Organization Address [facility]/ZIP Code Phon e Number [facility] [address] [place] [address] SERVICES [facility] [address] [place] [address] BACTERIAL CULTURE/SMEAR, RESPIRATORY (12/04/2006 11:44 EDT) Specimen Bronchoalveolar Lavage [facility] Description LAB Gram Smear Result Polys [facility] present LAB Alveolar macrophages present Respiratory epithelial cells present No bacteria seen Result No growth [facility] Report Status Final [facility] [id number] LAB Specimen Performing Organization Address [facility]/ZIP Code Phon e Number [facility] [address] [place] [address] SERVICES [facility] [address] [place] [address] DIFFERENTIAL, LAVAGE FLUID (12/04/2006 11:11 EDT) Neutrophils, 4 % [facility] Fluid LAB Lymphocytes, 54 % [facility] Fluid LAB Vance/Macro, Fluid 38 % [facility] Eosinophil, Fluid 4 % [facility] Others, Fluid 0 % [facility] Fluid Comment Reviewed by Dr. Abelino [facility] A FEW MULTINUCLEATED LAB GIANT CELLS PRESENT Note Cell count not [facility] available, consult LAB Pathologist Specimen Performing Organization Address City/[facility]/ZIP Code Phon e Number [facility] [address] [place] [address] SERVICES [facility] [address] [place] [address] UA REFLEX (12/04/2006 8:55 EDT) Pathologist Sig nature UA Billing Microscopic not [facility] indicated. Specimen Performing Organization Address [facility]/ZIP Code Phon e Number [facility] [address] [place] [address] SERVICES [facility] [address] [place] [address] URINALYSIS (12/04/2006 8:55 EDT) Pathologist Sig nature Color, UA Yellow [facility] Clarity, UA Clear [facility] Glucose, UA Norm NORM [facility] Bilirubin, UA Neg NEG [facility] Ketones, UA Neg NEG [facility] Specific [place], Urine 1.020 1.005 - 1.02 [facility] Blood, UA Neg NEG [facility] pH, UA 6.5 5.0 - 9.0 [facility] Protein, UA Neg NEG [facility] Urobilinogen, UA Norm NORM mg/dL [facility] Nitrite, UA Neg NEG [facility] Leuk Esterase Neg NEG [facility] Specimen Performing Organization Address City/[facility]/ZIP Code Phon e Number [facility] [address] [place] [address] SERVICES [facility] [address] [place] [address] TOTAL BILIRUBIN (12/04/2006 8:45 EDT) Pathologist Sig nature Bilirubin, Total <0.5 0.2 - 1.3 mg/dl [facility] Specimen Performing Organization Address [facility]/ZIP Code Phon e Number [facility] [address] [place] [address] SERVICES [facility] [address] [place] [address] PTT (12/04/2006 8:45 EDT) Pathologist Sig nature PTT 30Comment: 20 - 35 secs [facility] Therapeutic Heparin range: 60-100 seconds Specimen Performing Organization Address City/[facility]/ZIP Code Phon e Number [facility] [address] [place] [address] SERVICES [facility] [address] [place] [address] PROTIME (12/04/2006 8:45 EDT) Pro Time 13.4 12.0 - 15.0 [facility] secs I.N.R. 1.0 0.9 - 1.1 [facility] Comment: Ratio Moderate Intensity Coumadin INR = 2.0-3.0 Adjustments in anticoagulant therapy dose should be based upon the INR and NOT the Pro Time. Specimen Performing Organization Address [facility] Phon e Number [facility] [address] [place] [address] SERVICES [facility] [address] [place] [address] CREATININE (12/04/2006 8:45 EDT) Pathologist Sig nature Creatinine 0.80 0.7 - 1.5 mg/dl [facility] GFR, Calculated >60 ml/min/1.73m2 [facility] Specimen Performing Organization Address [facility] Phon e Number [facility] [address] [place] [address] SERVICES [facility] [address] [place] [address] HEMAGRAM (12/04/2006 8:45 EDT) Pathologist Sig nature WBC 6.56 4.0 - 10.4 K/cmm [facility] RBC 5.24 4.36 - 5.78 M/cmm [facility] Hemoglobin 14.7 13.8 - 17.3 gm/dl [facility] HCT 43.1 39.5 - 50.2 % [facility] MCV 82 81 - 95 fl [facility] MCH 28.1 27.6 - 33.0 pg [facility] MCHC 34.1 32.8 - 36.4 gm/dl [facility] PLT 308 141 - 320 K/cmm [facility] RDW-CV 13.6 11.8 - 14.1 % [facility] Specimen Performing Organization Address [facility] Phon e Number [facility] [address] [place] [address] SERVICES [facility] [address] [place] [address] CALCIUM (12/04/2006 8:45 EDT) Pathologist Sig nature Calcium 9.1 8.5 - 10.5 mg/dl [facility] Calculated Calcium 9.0 8.5 - 10.5 mg/dl [facility] Specimen Performing Organization Address [facility]/ZIP Code Phon e Number [facility] [address] [place] [address] SERVICES [facility] [address] [place] [address] BUN (12/04/2006 8:45 EDT) Pathologist Sig nature BUN 15 10 - 26 mg/dl [facility] Specimen Performing Organization Address [facility]/ZIP Code Phon e Number [facility] [address] [place] [address] SERVICES [facility] [address] [place] [address] AST (12/04/2006 8:45 EDT) Pathologist Sig nature AST 37 15 - 46 U/L [facility] Specimen Performing Organization Address [facility] Code Phon e Number [facility] [address] [place] [address] SERVICES [facility] [address] [place] [address] ALT (12/04/2006 8:45 EDT) Pathologist Sig nature ALT 69 21 - 72 U/L [facility] Specimen Performing Organization Address City/[facility]/ZIP Code Phon e Number [facility] [address] [place] [address] SERVICES [facility] [address] [place] [address] ALKALINE PHOSPHATASE (12/04/2006 8:45 EDT) Pathologist Sig nature Total Alkaline 64 38 - 126 U/L [facility] Phosphatase Specimen Performing Organization Address [facility] Phon e Number [facility] [address] [place] [address] SERVICES [facility] [address] [place] [id number] CYTOPATHOLOGY (12/04/2006 0:00 EDT) Pathology Report: CYTOPATHOLOGY REPORT [facility] Reports generated via electronic interface contain didi ginal data; however they are lacking the format of the original re port. Caution should be taken when reading/interpreting unfo rmatted reports. Name: ? TAMMIE LOZANO ? Accession #: ? [id number] : ? 1970 (Age: 36) ??M ?Collect Date: ? 11/24 Location: ? [facility] ? Receive Peter e: ? 12/04/2006 Provider: ? MYNOR MACK MD Copy to: ?JORGE LUIS T* REBECA CHACON MD ? CYTOLOGIC DIAGNOSIS: ? Bronchoalveolar lavage, right middle lobe, cyto logic evaluation: 1. ?No malignant cells identified. 2. ? Pulmonary alveolar macrophages present. Document reviewed and electronically signed by: ? SPARKLE JUÁREZ [facility] Report Date: ??12/04/2006 17:27 By the signature above, the attending physician certif ies that he/she has personally conducted a gross and/or microscopic examin ation of the described specimens and rendered or confirmed the above diagnosi s. Specimen Type: ? Bronchial Lavage, Right Middle Lobe Clinical History: ? 36 year old white mal e with lymphadenopathy. ??Rule out sarcoid vs. lymphoma vs. infection. ? Gross Description: ? 10cc' s of cloudy white fluid were receiv ed and processed by selective cellular enhancement technique. ? End of Report Specimen Performing Organization Address City/State/ZIP Code Phon e Number [facility] [address] [place] [address] SERVICES [facility] [address] [place] [address] CYTOPATHOLOGY (12/04/2006 0:00 EDT) Pathology Report: CYTOPATHOLOGY REPORT [facility] Reports generated via electronic interface contain didi ginal data; however they are lacking the format of the original re port. Caution should be taken when reading/interpreting unfo rmatted reports. Name: ? TAMMIE LOZANO ? Accession #: ? [id number] : ? 1970 (Age: 36) ??M ?Collect Date: ? 11/24 Location: ? [facility] ? Receive Peter e: ? 12/04/2006 Provider: ? MYNOR MACK MD Copy to: ?INOCENTE KANG T* REBECA RAMIREZ ? CYTOLOGIC DIAGNOSIS: ? Subcarinal lymph node, fine needle aspiration: 1. ?Negative for malignant cells. 2. ? Non-caseating granu lomatous process consistent with clinical impression of sarcoidosis. ? See comment. ? COMMENT: ? The specimen shows mu ltiple lymphohistiocytic aggregates in a background of benign lymphocytes. ??No necrosis is present. ??The fe atures are those of granulomatous disease, non-c aseating, and would support a clinical diagnosis of sarcoidosis. ??(Dr. Walker/Dr Peter Juárez)/[facility] Document reviewed and electronically signed by: ? SPARKLE JUÁREZ [facility] Report Date: ??12/05/2006 15:00 By the signature above, the attending physician certif ies that he/she has personally conducted a gross and/or microscopic examin ation of the described specimens and rendered or confirmed the above diagnosi s. Specimen Type: ? Lymph Node, Fine Needle Aspiration, Sub carinal Clinical History: ? 36 year old white mal e with history of cough, lymphadenopathy. ??Rule out lymphoma vs sarcoidosis. ?? Non-smoker ? Rapid Interpretation: ? Lymph node, subcarinal, Bobo needle biopsy: ? Pass 1, 4: ??Benign b ronchial cells. ??Pass 2: ??Benign bronchial cells, scant lymphocytes. Pass 3: ??Lymphohistiocytic aggregates, suspicious for granulomatous inflammation. (P Tiera CT, ??Nora Foster MD: 12/04/06 at 10:45am) Gross Description: ? 8 fixed prepared slid es, 3 air dried prepared slides, and 1 tube of Cytolyt were received and processed by selective cellular enha ncement technique. ? End of Report Specimen Performing Organization Address City/State/ZIP Code Phon e Number [facility] [address] [place] [address] SERVICES [facility] [address] [place] [address] documented in this encounter Visit Diagnoses Not on filedocumented in this encounter Care Teams Work Checker Relationship Specialty Start Date End Date Inocente Chacon MD PCP - General 12/01/08 [address] [place] [address] documented as of this encounter
--- OUTSIDE RECORDS SUMMARY | 2022-02-04 01:34 | XMS_ITS | Clinical Summary ---
:1970 Author Organization [facility] Address [address] [place] [address] Care Team Providers Name Role Phone Inocente Chacon MD Primary Care Provider Allergies No known active allergies Medications Medication Sig Dispensed Refills Start Date End Date Status metoprolol (LOPRESSOR) Take 25 mg by 0 01/12/2011 Active 25 mg tablet mouth daily. omeprazole (PRILOSEC) 40 Take 40 mg by 0 Active mg capsule mouth daily. levothyroxine Take 1 Tab by 90 Tab 4 04/15/2011 A ctive (SYNTHROID) 75 mcg mouth daily. tablet Social History Tobacco Use Types Packs/Day Years Used Date Never Smoker Smokeless Tobacco: Current User Alcohol Use Standard Drinks/Week Comments Not Asked 0 (1 standard drink = 0.6 oz pure alcoho l) Sex Assigned at Date Recorded Not on file Last Filed Vital Signs Vital Sign Reading Time Taken Comments Blood Pressure 132/84 06/07/2011 1537 EST Pulse 64 06/07/2011 1537 EST Temperature - - Respiratory Rate - - Oxygen Saturation - - Inhaled Oxygen Concentration - - Weight 87.7 kg (193 lb 6.4 oz) 06/07/2011 1537 EST Height 170.2 cm (5' 7) 06/07/2011 1537 EST Body Mass Index 30.29 06/07/2011 1537 EST Plan of Treatment Not on file Care Teams Cannon [employer] Direction Specialist Relationship Specialty Start Date End Date Inocente Chacon MD PCP - General 12/01/08 [address] [place] [address]
--- OUTSIDE RECORDS SUMMARY | 2022-02-04 01:34 | XMS_ITS | Encounter Summary ---
:1970 Author Organization [facility] Address [address] [place] [address] Care Team Providers Name Role Phone Inocente Chacon MD Primary Care Provider Encounter Details Date Type Department Care Team Description 11/30/2009 Hospital Encounter [facility] Mack MD [address] [facility] [address] [place] [address] Social History Tobacco Use Types Packs/Day Years Used Date Never Assessed Sex Assigned at Date Recorded Not on file documented as of this encounter Discharge Disposition Disposition Code Departure Means Destination Auto Discharge Home documented in this encounter Plan of Treatment Not on filedocumented as of this encounter Visit Diagnoses Not on filedocumented in this encounter Care Teams Carbon Accountant Relationship Specialty Start Date End Date Inocente Chacon MD PCP - General 12/01/08 [address] [place] [address] documented as of this encounter
--- OUTSIDE RECORDS SUMMARY | 2022-02-04 01:34 | XMS_ITS | Encounter Summary ---
:1970 Author Organization [facility] Address [address] [place] [address] Care Team Providers Name Role Phone Inocente Chacon MD Primary Care Provider Reason for Visit Reason Onset Date Comments Results 01/13/2011 Encounter Details Date Type Department Care Team Description 01/13/2011 Telephone [facility] Annette Pierre Endocrinology - [facility] marce Jamil MD [address] [place], [place] [address] [place], [place] [address] (Wo rk) Social History Tobacco Use Types Packs/Day Years Used Date Never Smoker Smokeless Tobacco: Current User Alcohol Use Standard Drinks/Week Comments Not Asked 0 (1 standard drink = 0.6 oz pure alcoho l) Sex Assigned at Date Recorded Not on file documented as of this encounter Miscellaneous Notes Telephone Encounter - Loulou Pierre - 01/17/2011 1554 EDT Elevated TSH (12), low normal free T4 (0.8), positive TPO ab consistent with Hashimotos. I am going to start Mr Lozano on synthroid 50 mcg daily. I will check her TSH and free t4 in 6-8 wks from now Telephone Encounter - Angle Foy - 01/17/2011 1517 EDT Patient calling back with alternate number elephone Encounter - Loulou Pierre - 01/17/2011 1442 EDT I Telephone Encounter - Tiffany Fermin - 01/14/2011 1102 EDT Lab results are ready to review. I gave the results to his with his permission. Telephone Encounter - Bill Seals - 01/14/2011 1043 EDT Pt would like a call back regarding lab results. elephone Encounter - Bill Seals - 01/13/2011 1546 EDT Pt calling for lab results Dr. Mckinley said someone would call him today. documented in this encounter Plan of Treatment Not on filedocumented as of this encounter Visit Diagnoses Not on filedocumented in this encounter Care Teams Turf Manager Relationship Specialty Start Date End Date Inocente Chacon MD PCP - General 12/01/08 [address] [place] [address] documented as of this encounter
--- OUTSIDE RECORDS SUMMARY | 2022-02-04 01:34 | XMS_ITS | Encounter Summary ---
:1970 Author Organization [facility] Address [address] [place] [address] Care Team Providers Name Role Phone Inocente Chacon MD Primary Care Provider Encounter Details Date Type Department Care Team Description 01/03/2008 Hospital Encounter [facility] - Uriel Alvarez in [facility] [address] [facility] [address] [place] [address] [place], [place] [phone] (Wo rk) Social History Tobacco Use Types [...] on filedocumented in this encounter Care Teams Resp Ther Relationship Specialty Start Date End Date Inocente Chacon MD PCP - General 12/01/08 [address] [place] [address] documented as of this encounter
--- OUTSIDE RECORDS SUMMARY | 2022-02-04 01:34 | XMS_ITS | Encounter Summary ---
:1970 Author Organization [facility] Address [address] [place] [address] Care Team Providers Name Role Phone Inocente Chaocn MD Primary Care Provider Encounter Details Date Type Department Care Team Description 04/15/2011 Orders Only [facility] Rimma Pierre'daisha Endocrinology - Pardeep Jamil MD thyroiditis (Primary [address] [place], [place] [address] [place], [place] [phone] (Wo rk) Social History Tobacco Use Types Packs/Day Years Used Date Never Smoker Smokeless Tobacco: Current User Alcohol Use Standard Drinks/Week Comments Not Asked 0 (1 standard drink = 0.6 oz pure alcoho l) Sex Assigned at Date Recorded Not on file documented as of this encounter Ordered Prescriptions Prescription Sig Dispensed Refills Start Date End Date levothyroxine (SYNTHROID) Take 1 Tab by 90 Tab 4 011 75 mcg tablet mouth daily. levothyroxine (SYNTHROID) Take 1 Tab by 90 Tab 4 011 06/07/2011 75 mcg tablet mouth daily. documented in this encounter Progress Notes Loulou Pierre - 04/15/2011 1257 EDT TSH 6.6 free T4 0.8. 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 documented as of this encounter Care Teams Bar Examiner Relationship Specialty Start Date End Date Inocente Chacon MD PCP - General 12/01/08 [address] [place] [address] documented as of this encounter
--- OUTSIDE RECORDS SUMMARY | 2022-02-04 01:34 | XMS_ITS | Encounter Summary ---
:1970 Author Organization [facility] Address [address] [place] [address] Care Team Providers Name Role Phone Unavailable Primary Care Provider Unavailable Encounter Details Date Type Department Care Team Description 11/22/2006 Hospital Encounter [facility] - Isrrael Ramires MD [facility] PhD 111 [facility] [address] [place], [place] [address] [place] [address] [address], [address] [place] [address] (Wo rk) Social History Tobacco Use Types Packs/Day Years Used Date Never Assessed Sex Assigned at Date Recorded Not on file documented as of this encounter Discharge Disposition Disposition Code Departure Means Destination Auto Discharge documented in this encounter Plan of Treatment Not on filedocumented as of this encounter Procedures Procedure Name Priority Date/Time Associated Diagnosis Comme nts CT CHEST W CONTRAST 11/22/2006 16:38 Resu lts for this EDT procedure are i n the results section. documented in this encounter Results CT CHEST W CONTRAST (11/22/2006 16:38 EDT) Anatomical Region Laterality Modality Other Specimen Narrative [facility] - 12/24/2008 11 :28 EDT hilar/mediastinal adenopathy on cxr History: ?? hilar/mediastinal adenopathy on cxr Technique: A single breath-hold helical CT acquisit ion was performed through the chest on a multidetector-row scanner wit h a reconstructed slice thickness of 3 mm and retrospectively re constructed 0.9 mm thick sections with 0.45 mm overlapping interv als. ??The scans were obtained from the lung apices through the bases d uring the intravenous administration of 90-100 cc of 370 mg% n onionic contrast injected at a rate of 2 cc/second. Scans were review ed on a dedicated PACS workstation for analysis. Findings: The evaluation of the chest wa ll shows no abnormalities. The heart and pericardium appear normal. There are symmetrically enlarged bilateral hilar and mediastinal lymph nodes. The distribution of lymph node enlargement I believe is characteristic of sarcoidosis. I believe there is also inv olvement of lobar and segmental lymph nodes within portions of both lungs, again consistent with a diagnosis of sarcoidosis. There i s no pleural abnormality seen. The evaluation of the airways and lung p arenchyma shows small scattered nodules bilaterally with some small clustered nodule seen in portions of the middle lobe. These fi ndings are consistent with parenchymal involvement due to sarcoidos is. Scans of the upper abdomen are limited b ut are unremarkable. Impression: 1. Findings that I believe are character istic of sarcoidosis with symmetric bilateral hilar and middle med iastinal lymph node enlargement with extension of lymph node s into the lobar and segmental portions of the lungs and scat tered bilateral lung nodules with some scattered areas of peribroncho vascular nodularity most evident within the middle lobe of lung. 2. Otherwise unremarkable CT scan of the chest. Procedure Note Mariano Cruz MD - 12/24/2008 hilar/mediastinal adenopathy on cxr History: hilar/mediastinal adenopathy on cxr Technique: A single breath-hold helical CT acquisit ion was performed through the chest on a multidetector-row scanner wit h a reconstructed slice thickness of 3 mm and retrospectively re constructed 0.9 mm thick sections with 0.45 mm overlapping interv als. The scans were obtained from the lung apices through the bases d uring the intravenous administration of 90-100 cc of 370 mg% n onionic contrast injected at a rate of 2 cc/second. Scans were review ed on a dedicated PACS workstation for analysis. Findings: The evaluation of the chest wa ll shows no abnormalities. The heart and pericardium appear normal. There are symmetrically enlarged bilateral hilar and mediastinal lymph nodes. The distribution of lymph node enlargement I believe is characteristic of sarcoidosis. I believe there is also inv olvement of lobar and segmental lymph nodes within portions of both lungs, again consistent with a diagnosis of sarcoidosis. There i s no pleural abnormality seen. The evaluation of the airways and lung p arenchyma shows small scattered nodules bilaterally with some small clustered nodule seen in portions of the middle lobe. These fi ndings are consistent with parenchymal involvement due to sarcoidos is. Scans of the upper abdomen are limited b ut are unremarkable. Impression: 1. Findings that I believe are character istic of sarcoidosis with symmetric bilateral hilar and middle med iastinal lymph node enlargement with extension of lymph node s into the lobar and segmental portions of the lungs and scat tered bilateral lung nodules with some scattered areas of peribroncho vascular nodularity most evident within the middle lobe of lung. 2. Otherwise unremarkable CT scan of the chest. Performing Organization Address City/State/ZIP Code Phon e Number [facility] 111 [facility], [facility] [address] [facility] [address] [place], [place] [address] documented in this encounter Visit Diagnoses Not on filedocumented in this encounter
--- OUTSIDE RECORDS SUMMARY | 2022-02-04 01:34 | XMS_ITS | Encounter Summary ---
:1970 Author Organization [facility] Address [address] [place] [address] Care Team Providers Name Role Phone Inocente Chacon MD Primary Care Provider Encounter Details Date Type Department Care Team Description 12/06/2007 Before [facility] - Kilo Alvarez, Converted Visit Brittany ta MD ([place]) 111 [facility] [address] [place] [address] [place], [place] [phone] (Wo rk) Social History Tobacco Use Types Packs/Day Years Used Date Never Assessed Sex Assigned at Date Recorded Not on file documented as of this encounter Progress Notes Kilo Alvarez MD - 03/27/2009 0714 EDT DIVISION OF PULMONOLOGY PROGRESS/FOLLOWUP NOTE - 12/06/2007 December 06, 2007 Inocente Chacon M.D. [facility] [address] [place] [id number] Chacon: We had the pleasure of seeing Mr. Jaden Lozano in Pulmonary Followup Clinic with regards to his sarcoidosis. As you know, he is a 37-year-old white male who we last saw in Pulmonary Clinic in December of last year. Since we last saw him, he states he has had no more wheezing or difficulty breathing. He has had no colds over the winter. He states he did not obtain a flu shot, however. He does have some occasional heartburn off his anti-reflux medication for the past three months, but this has not particularly bothered him. From a symptomatic standpoint in relation to the sarcoid, he states that he has not hadany palpitations or chest pain. He has not had any wheezing. He has not had any visual changes; however, he states that he does have some dry eyes. He has been seen by Dr. Jones in the past; however, this is not since 12/2006. He is not currently on any medications and further review of systems isunremarkable. Vital signs today reveal temperature is 96.8, blood pressure is 108/76, pulse 86, respirations 12, and saturating 99% on room air. Generally, he is a well- developed, well-nourished white male inno acute distress. HEENT exam reveals moist mucous membranes with a clear oropharynx. Heart is regular rate and rhythm without murmur. Lungs are clear to auscultation bilaterally without wheezes, rales, or rhonchi. Abdomen is benign. Extremities arewithout edema, cyanosis, or clubbing. Pulmonary function test performed today revealed a post-bronchodilator FVC of 4.29 liters, which is 89% predicted, and FEV1 of 3.95 liters, which is 102% predicted, for a ratio of 115%. There is no significant post-bronchodilator response. His diffusion is normal. Patient underwent a chest x-ray, which was performed today, which reveals some improving mediastinaland hilar adenopathy, even though there still is some fullness in the infrahilar area on the lateralview. Review of patients laboratories performed today revealed that he has a normal BUN, creatinine, calcium, liver panel, and hemogram with differential. His urinalysis is also unremarkable. Assessment: Sarcoidosis. Recommendations: Patient appears stable from a sarcoid standpoint. Indeed, it seems quiescent. We will not plan on changing any medications at this time. The only thing the patient lacks is an EKG and an updated ophthalmologic exam. These should be repeated on an annual basis. Patient should also receive a flu shot when it becomes available inthe fall. Thank you for allowing us to participate in the care of Mr. Lozano. We will plan on reevaluating him in one years time with the laboratory including liver function tests, CBC with diff, BUN and creatinine, urinalysis, and a serum calcium.Healso should have an EKG and full pulmonary function test at that time. Patient was seen in conjunction with Dr. Miguelito Bowles, the attending of record. Please do not hesitate to contact us with any questions or concerns in the meantime. Sincerely, saw and evaluated the patient. I agree with the findings and the plan of care as documented in the resident's/fellow's note. Signed by Lawson Bowles MD 12/17/2007 07:59 Reviewed by Kilo Alvarez MD 12/14/2007 15:27 Kilo Alvarez MD Lawson Bowles MD - Kilo Alvarez MD - [facility] Job ID: [id number] Doc ID: [id number] cc: Inocente Chacon MD - [facility] Job ID: [id number] Doc ID: [id number] cc: Inocente Chacon MD documented in this encounter Plan of Treatment Not on filedocumented as of this encounter Visit Diagnoses Not on filedocumented in this encounter Care Teams Nurse Practitioner Per Diem Relationship Specialty Start Date End Date Inocente Chacon MD PCP - General 12/01/08 [address] [place] [address] documented as of this encounter
--- OUTSIDE RECORDS SUMMARY | 2022-02-04 01:34 | XMS_ITS | Encounter Summary ---
:1970 Author Organization [facility] Address [address] [place] [address] Care Team Providers Name Role Phone Inocente Chacon MD Primary Care Provider Encounter Details Date Type Department Care Team Description 11/22/2019 Lab Requisition [facility] Outr Resulting Lab, Pathology & Laboratory Provider [facility] [address] [place], [place] [address] Social History Tobacco Use Types Packs/Day Years Used Date Never Assessed Sex Assigned at Date Recorded Not on file documented as of this encounter Plan of Treatment Not on filedocumented as of this encounter Procedures Procedure Name Priority Date/Time Associated Diagnosis Comme nts COVID-19 TEST [facility] Today 11/22/2019 11:24 LAB PCR EDT COVID-19 TESTING Routine 11/22/2019 11:24 Results for this EDT procedure are i n the results section. documented in this encounter Results COVID-19 TEST [facility] LAB PCR (11/22/2019 11:24 EDT) Specimen Swab - Entire nasopharynx (body structur e) Performing Organization Address City/State/ZIP Code Phon e Number [facility] [address] [place] [address] SERVICES COVID-19 TESTING (11/22/2019 11:24 EDT) COVID-19 rt-PCR Negative Negative [facility] Result Comment: [facility] This test has not been FDA c leared or approved. This test has been authorized by FDA under an EUA for use by authorized laboratories. This test has been authorized only for detection of nucleic acid fro SERVICES m 2019-nCo, not for any oth er viruses or pathogens. This test is only authorized for the duration of the declaration that circumstances exist justifying the authorization of emergency use of in vitro d iagnostic tests for detectio n and/or diagnosis of 2019-nCoV under section 564(b)(1) of Act, 21 U.S.C ?? 360bbb-3(b) (1), unless the authorization is terminated or revoked sooner. Negative results do not prec lude 2019-nCoV infection and should not be used as the sole basis for treatment or other patient management decisions. Negative results must be combined with clinical observa tions, patient history, and epidemiological informatio n. Performed on the [employer] instrument Performing Lab [place] [facility] Lab [facility] SERVICES Specimen Swab - Entire nasopharynx (body structur e) Performing Organization Address City/State/ZIP Code Phon e Number [facility] [address] [place] [address] SERVICES documented in this encounter Visit Diagnoses Not on filedocumented in this encounter Care Teams Laminating Machine Feeder Relationship Specialty Start Date End Date Inocente Chacon MD PCP - General 12/01/08 [address] [place] [address] documented as of this encounter
--- OUTSIDE RECORDS SUMMARY | 2022-02-04 01:34 | XMS_ITS | Encounter Summary ---
:1970 Author Organization [facility] Address [address] [place] [address] Care Team Providers Name Role Phone Inocente Chacon MD Primary Care Provider Encounter Details Date Type Department Care Team Description 01/11/2007 Before [facility] - Kilo Alvarez, Converted Visit Brittany ta MD ([place]) [address] [facility] [address] [place] [address] [place], [place] [phone] (Wo rk) Social History Tobacco Use Types Packs/Day Years Used Date Never Assessed Sex Assigned at Date Recorded Not on file documented as of this encounter Progress Notes Kilo Alvarez MD - 04/29/2009 0249 EST DIVISION OF PULMONOLOGY PROGRESS/FOLLOWUP NOTE January 11, 2007 Raul Sommer MD [facility] [address] [place] [address] Sommer: had the pleasure of seeing Mr. Jaden Lozano in pulmonary followup clinic. As you know, he is a 36-year-old white male who we last evaluated for his abnormal chest x-ray in October of 2006. Since we last saw him in clinic, he has undergone a bronchoscopy,which has confirmed our initial suspicion that he does have sarcoidosis. This was confirmed by his subcarinal biopsy. He states that since we began him on Advair 250/50 b.i.d. he has subsequently had a marked decrease in his coughing. His crackling and wheezing have certainly improved. He does have some occasional difficulty with air conditioning, which he relates may be due to the dryness of air. He denies any fevers or chills and his night sweats have improved. He does occasionally have left chest pain that feels like a cramp. He does not recall any specific injury that could have caused this. Further review of systems is essentially unremarkable. Vital signs today: Temperature is 36.8, pulse 80, blood pressure 128/86, respirations 12, he is saturating 95% on room air. Physical exam is significant for a well developed, well nourished white male,in no acute distress. His lung exam reveals good air entry bilaterally. He does have tenderness to palpation on his left lateral pectoralis that does appear to bemuscular in origin and is not changed by his breathing. His heart is regular rate and rhythm. Abdomen is soft, nontender, nondistended. Extremities are without edema, cyanosis or clubbing. Review of the patients laboratories obtained at the time of bronchoscopy revealed that the patient had normal liver function tests, BUN and creatinine, and CBC. Assessment: 1. Sarcoidosis, 2. Question of reactive airways disease/asthma. Plan: 1. With regards to this patients sarcoidosis, the patients initial screening laboratories including an eye exam, which the patient reports was done today, have been unremarkable. We will therefore planon following him up in roughly one year. 2. With regards to patients cough, this has markedly improved on the Advair. The patient states thathe has been faithful using his Advair, however, is unclear as to the actual etiology of this cough. If this cough is spontaneously improving as may occur with the natural regression of sarcoidosis, then he should not have return of his symptoms if we trial him off the Advair. If the patientsymptoms do increase once the Advair is stopped, we would recommend that he undergo a methacholine challenge to solidify the diagnosis of asthma and then we would treat him as appropriate. In the meantime we certainly recommend that he continue on his proton pump inhibitor. If the patients symptoms do not return a fter being off the Advair, certainly would consider trialing him off the Aciphex. 3. The patient will plan on contacting us if there is an increase in his symptoms at any point during this titration process. Thank you for allowing us to participate in the care of Mr. Jaden Lozano. Please do not hesitate tocontact us with any questions or concerns. This patient was seen in conjunction with Dr. Lawson Bowles, the attending of record. Sincerely, saw and evaluated the patient. I agree with the findings and the plan of care as documented in the resident's/fellow's note. Signed by Lawson Bowles MD 01/17/2007 15:57 Mgiel Alvarez, Dione Brush MD - Kilo Alvarez MD - [facility] Job ID: [id number] Doc ID: [id number] cc: Raul Sommer MD \* [employer] - Kilo Alvarez MD - [facility] Job ID: [id number] Doc ID: [id number] cc: Raul Sommer MD documented in this encounter Plan of Treatment Not on filedocumented as of this encounter Visit Diagnoses Not on filedocumented in this encounter Care Teams Property Management Assistant Relationship Specialty Start Date End Date Inocnete Chacon MD PCP - General 12/01/08 [address] [place] [address] documented as of this encounter
--- OUTSIDE RECORDS SUMMARY | 2022-02-04 01:34 | XMS_ITS | Encounter Summary ---
:1970 Author Organization [facility] Address [address] [place] [address] Care Team Providers Name Role Phone Inocente Chacon MD Primary Care Provider Encounter Details Date Type Department Care Team Description 01/11/2007 Hospital Encounter [facility] - Uriel Alvarez in [facility] 111 [facility] [address] [place] [address] [place], [place] [phone] (Wo rk) Social History Tobacco Use Types [...] on filedocumented in this encounter Care Teams Fish And Wildlife Biologist Relationship Specialty Start Date End Date Inocente Chaocn MD PCP - General 12/01/08 [address] [place] [address] documented as of this encounter
--- OUTSIDE RECORDS SUMMARY | 2022-02-04 01:34 | XMS_ITS | Encounter Summary ---
:1970 Author Organization [facility] Address [address] [place] [address] Care Team Providers Name Role Phone Inocente Chacon MD Primary Care Provider Encounter Details Date Type Department Care Team Description 12/06/2007 Hospital Encounter [facility] - Deandre Bowles MD [facility] 111 [facility] [address] [place] [address] [place], [place] [id number] [phone] Social History Tobacco Use Types Packs/Day Years [...] Name Priority Date/Time Associated Diagnosis Comme nts CHEST PA AND 12/06/2007 12:47 Results for this LATERAL EDT procedure are i n the results section. documented in this encounter Results CHEST PA AND LATERAL (12/06/2007 12:47 EDT) Anatomical Region Laterality Modality Other Specimen Narrative [facility] - 12/07/2008 13 :55 EDT sarcoid Chest PA and Lateral: ?? December 06, 2007 1 2:47:00 PM Signs and Symptoms: ??sarcoid. Impression: ??Improving mediastinal and hilar adenopathy. Description. There is still some fullnes s in the infrahilar area on the current lateral view, likely indicat ing residual hilar adenopathy, but it is much improved when compared to the CT exam of 22 Nov 2006. The mediastinal and AP wind ow lymph nodes are not evident on today's study. No evidence of parenchymal lung involvement or pleural effusion. Procedure Note Haja Kilpatrick MD - 12/07/2008 sarcoid Chest PA and Lateral: December 06, 2007 12:4 7:00 PM Signs and Symptoms: sarcoid. Impression: Improving mediastinal and hi lar adenopathy. Description. There is still some fullnes s in the infrahilar area on the current lateral view, likely indicat ing residual hilar adenopathy, but it is much improved when compared to the CT exam of 22 Nov 2006. The mediastinal and AP wind ow lymph nodes are not evident on today's study. No evidence of parenchymal lung involvement or pleural effusion. Performing Organization Address City/State/ZIP Code Phon e Number [facility] 111 [facility] [address] [facility] [address] [place], [place] [address] documented in this encounter Visit Diagnoses Not on filedocumented in this encounter Care Teams Log Data Technician Relationship Specialty Start Date End Date Inocente Chacon MD PCP - General 12/01/08 [address] [place] [address] documented as of this encounter
--- OUTSIDE RECORDS SUMMARY | 2022-02-04 01:34 | XMS_ITS | Encounter Summary ---
:1970 Author Organization [facility] Address [address] [place] [address] Care Team Providers Name Role Phone Inocente Chacon MD Primary Care Provider Encounter Details Date Type Department Care Team Description 01/12/2011 Phlebotomy Only [facility] Research Phlebotomist, [facility] Outpatient multinodular goiter [address] [place], [place] [address] Social History Tobacco Use Types Packs/Day Years [...] Name Priority Date/Time Associated Diagnosis Comme nts TSH Routine 01/12/2011 15:57 EDT Nontoxic multinodula r Results for this goiter procedure are i n the results section. documented in this encounter Results (ABNORMAL) TSH (01/12/2011 15:57 EDT) Pathologist Sig nature TSH 12.43 (H) 0.35 - 5.00 uIU/ml [facility] Specimen Blood specimen (specimen) Performing Organization Address City/State/ZIP Code Phon e Number [facility] [address] [place] [address] SERVICES [facility] [address] [place] [address] documented in this encounter Visit Diagnoses Diagnosis Nontoxic multinodular goiter documented in this encounter Care Teams Business Development Recruiter Relationship Specialty Start Date End Date Inocente Chacon MD PCP - General 12/01/08 [address] [place], [place] [address] documented as of this encounter
--- OUTSIDE RECORDS SUMMARY | 2022-02-04 01:34 | XMS_ITS | Encounter Summary ---
:1970 Author Organization [facility] Address [address] [place] [address] Care Team Providers Name Role Phone Inocente Chacon MD Primary Care Provider Encounter Details Date Type Department Care Team Description 12/06/2007 Results Only EP5 LUNG CTR MDCer Lung Deandre Bowles MD Multidisciplinary - Main [address] [place] [address] [address] [facility] [place], [place] [address] [phone] Social History Tobacco Use Types Packs/Day Years Used Date Never Assessed Sex Assigned at Date Recorded Not on file documented as of this encounter Plan of Treatment Not on filedocumented as of this encounter Procedures Procedure Name Priority Date/Time Associated Comments Diagnosis URINALYSIS WITH Routine 12/06/2007 12:19 Results for this MICROSCOPIC IF EDT procedure are in POSITIVE the results section. UA REFLEX Routine 12/06/2007 12:19 Results for this EDT procedure are i n the results section. COMPLETE BLOOD COUNT Routine 12/06/2007 12:19 Res ults for this AND DIFFERENTIAL EDT procedure a re in the results section. BUN Routine 12/06/2007 12:19 Results for this EDT procedure are i n the results section. CREATININE Routine 12/06/2007 12:19 Results for this EDT procedure are i n the results section. CALCIUM Routine 12/06/2007 12:19 Results for this EDT procedure are i n the results section. HEPATIC FUNCTION Routine 12/06/2007 12:19 Results for this PANEL (ALB,ALK EDT procedure are in PHOS,ALT,AST,DBIL,TOT the re sults RAMIRO,TOT PROT) section. documented in this encounter Results UA REFLEX (12/06/2007 12:19 EDT) Pathologist Sig nature UA Billing Microscopic not [facility] indicated. Specimen Performing Organization Address [place]/ZIP Code Phon e Number [facility] [address] [place] [address] SERVICES [facility] [address] [place] [address] URINALYSIS (12/06/2007 12:19 EDT) Pathologist Sig nature Color, UA Yellow [facility] Clarity, UA Clear [facility] Glucose, UA Norm NORM [facility] Bilirubin, UA Neg NEG [facility] Ketones, UA Neg NEG [facility] Specific [place], Urine 1.015 1.005 - 1.02 [facility] Blood, UA Neg NEG [facility] pH, UA 6.0 5.0 - 9.0 [facility] Protein, UA Neg NEG [facility] Urobilinogen, UA Norm NORM mg/dL [facility] Nitrite, UA Neg NEG [facility] Leuk Esterase Neg NEG [facility] Specimen Performing Organization Address [place]/ZIP Code Phon e Number [facility] [address] [place] [address] SERVICES [facility] [address] [place] [address] LIVER FUNCTION TESTS (12/06/2007 12:19 EDT) Pathologist Sig nature Albumin 4.8 3.4 - 4.9 g/dl [facility] Total Protein 7.2 6.5 - 8.3 g/dl [facility] Total Alkaline 57 38 - 126 U/L [facility] Phosphatase ALT 42 21 - 72 U/L [facility] AST 36 15 - 46 U/L [facility] Unconjugated Bilirubin 0.5 0.1 - 1.1 mg/dl [facility] Conjugated Bilirubin 0.0 0.0 - 0.3 mg/dl [facility] Bilirubin, Total <0.5 0.2 - 1.3 mg/dl [facility] Specimen Performing Organization Address [place]/[facility]/ZIP Code Phon e Number [facility] [address] [place] [address] SERVICES [facility] [address] [place] [address] CREATININE (12/06/2007 12:19 EDT) Pathologist Sig nature Creatinine 0.80 0.7 - 1.5 mg/dl [facility] GFR, Calculated >60 ml/min/1.73m2 [facility] Specimen Performing Organization Address City/State/ZIP Code Phon e Number [facility] [address] [place] [address] SERVICES [facility] [address] [place] [address] HEMAGRAM AND DIFFERENTIAL (12/06/2007 12:19 EDT) Pathologist Sig nature WBC 5.72 4.0 - 10.4 K/cmm [facility] RBC 5.08 4.36 - 5.78 M/cmm [facility] Hemoglobin 14.4 13.8 - 17.3 gm/dl [facility] HCT 42.6 39.5 - 50.2 % [facility] MCV 84 81 - 95 fl [facility] MCH 28.3 27.6 - 33.0 pg [facility] MCHC 33.8 32.8 - 36.4 gm/dl [facility] PLT 316 141 - 320 K/cmm [facility] RDW-CV 13.9 11.8 - 14.1 % [facility] Neutrophils 67.2 45.5 - 79.7 % [facility] Lymphocytes 19.7 15.0 - 46.8 % [facility] Monocytes 9.0 1.8 - 12.0 % [facility] Eosinophils 3.8 0.6 - 6.9 % [facility] Basophils 0.3 0.2 - 1.4 % [facility] ABS Neutrophils 3.85 2.20 - 8.85 K/cmm [facility] ABS Lymphs 1.12 1.09 - 3.30 K/cmm [facility] ABS Monocytes 0.52 0.1 - 0.8 K/cmm [facility] ABS Eosinophils 0.22 0.03 - 0.61 K/cmm [facility] ABS Basophils 0.02 0.01 - 0.11 K/cmm [facility] Type of Diff: Automated [facility] Specimen Performing Organization Address [place] Phon e Number [facility] [address] [place] [address] SERVICES [facility] [address] [place] [address] CALCIUM (12/06/2007 12:19 EDT) Pathologist Sig nature Calcium 9.3 8.5 - 10.5 mg/dl [facility] Calculated Calcium 8.9 8.5 - 10.5 mg/dl [facility] Specimen Performing Organization Address [place] Code Phon e Number [facility] [address] [place] [address] SERVICES [facility] [address] [place] [address] BUN (12/06/2007 12:19 EDT) Pathologist Sig nature BUN 20 10 - 26 mg/dl [facility] Specimen Performing Organization Address [place] Phon e Number [facility] [address] [place] [address] SERVICES [facility] [address] [place] [address] documented in this encounter Visit Diagnoses Not on filedocumented in this encounter Care Teams Trimmer Sawyer Relationship Specialty Start Date End Date Inocente Chacon MD PCP - General 12/01/08 [address] [place] [address] documented as of this encounter
--- OUTSIDE RECORDS SUMMARY | 2022-02-04 01:34 | XMS_ITS | Encounter Summary ---
:1970 Author Organization [facility] Address [address] [place] [address] Care Team Providers Name Role Phone Inocente Chacon MD Primary Care Provider Encounter Details Date Type Department Care Team Description 11/30/2009 Orders Only EP5 LUNG CTR MDCer Lung Los Mack MD [facility] [address] [place], [place] [id number] Social History Tobacco Use Types Packs/Day Years Used Date Never Assessed Sex Assigned at Date Recorded Not on file documented as of this encounter Plan of Treatment Not on filedocumented as of this encounter Procedures Procedure Name Priority Date/Time Associated Diagnosis Comme nts CT CHEST W CONTRAST 11/30/2009 10:40 Resu lts for this EDT procedure are i n the results section. documented in this encounter Results CT CHEST W CONTRAST (11/30/2009 10:40 EDT) Anatomical Region Laterality Modality Other Specimen [facility]arrative [facility] - 11/30/2009 12:23 EDT History: ?? Sarcoidosis CT CHEST W/CONTRAST Technique: A single breath-hold helical CT acquisit [...] on a dedicated PACS workstation for analysis. Comparisons: November 22, 2006. Findings: The evaluation of the chest wa ll shows no abnormalities. The heart and pericardium are show some atherosclerotic calcification within the proximal aspect of the left a nterior descending coronary artery and the first diagonal branch of the left anterior descending coronary artery. There are slightly enla rged lymph nodes within both hilar and interlobar regions but the mar ked mediastinal and hilar lymph node enlargement seen previously h as regressed. Some asymmetric tissue remains within the right interlob ar region. No pleural abnormalities are seen. The airways and lungs show significant r egression of the multiple bilateral nodules that were seen the per ibronchovascular distribution on the prior study. There remains some a reas of parenchymal scarring in areas which previously showed nodular abnormalities particular within the right lung. No new lesions ar e seen. Limited scans of the upper abdomen are u nremarkable. Impression: 1. Significant regression of enlarged me diastinal and bilateral hilar lymph nodes seen on the studies of Oct, 2006. There remains some slightly asymmetric lymphoid tissue in t he right lower hilum in the interlobar region which is likely just r esidual lymphoid tissue. 2. Marked regression of multiple peribro nchovascular nodular densities with some residual densities r emaining in these regions but no new lesions identified. 3. 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 Procedure Note 11/30/2009 History: Sarcoidosis CT CHEST W/CONTRAST Technique: A single breath-hold helical CT acquisit [...] on a dedicated PACS workstation for analysis. Comparisons: November 22, 2006. Findings: The evaluation of the chest wa ll shows no abnormalities. The heart and pericardium are show some atherosclerotic calcification within the proximal aspect of the left a nterior descending coronary artery and the first diagonal branch of the left anterior descending coronary artery. There are slightly enla rged lymph nodes within both hilar and interlobar regions but the mar ked mediastinal and hilar lymph node enlargement seen previously h as regressed. Some asymmetric tissue remains within the right interlob ar region. No pleural abnormalities are seen. The airways and lungs show significant r egression of the multiple bilateral nodules that were seen the per ibronchovascular distribution on the prior study. There remains some a reas of parenchymal scarring in areas which previously showed nodular abnormalities particular within the right lung. No new lesions ar e seen. Limited scans of the upper abdomen are u nremarkable. Impression: 1. Significant regression of enlarged me diastinal and bilateral hilar lymph nodes seen on the studies of Oct, 2006. There remains some slightly asymmetric lymphoid tissue in t he right lower hilum in the interlobar region which is likely just r esidual lymphoid tissue. 2. Marked regression of multiple peribro nchovascular nodular densities with some residual densities r emaining in these regions but no new lesions identified. 3. 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 Performing Organization Address City/State/ZIP Code Phon e Number [facility] documented in this encounter Visit Diagnoses Not on filedocumented in this encounter Care Teams Thoracic Medicine Physician Relationship Specialty Start Date End Date Inocente Chacon MD PCP - General 12/01/08 [address] [place] [address] documented as of this encounter
--- OUTSIDE RECORDS SUMMARY | 2022-02-04 01:34 | XMS_ITS | Encounter Summary ---
:1970 Author Organization [facility] Address [address] [place] [address] Care Team Providers Name Role Phone Inocente Chacon MD Primary Care Provider Reason for Visit Reason Comments Goiter MARIAG- f/u Encounter Details Date Type Department Care Team Description 06/07/2011 Office Visit [facility] Unknown, Prov MD janes Unspecified Endocrinology - Bienvenido Saba MD [address], [address] [place] [address] hypothyroidism Loulou Murillo MD [address] [place], [place] [address] (Primary Dx) [address] [place] [address] Social History Tobacco Use Types Packs/Day Years Used Date Never Smoker Smokeless Tobacco: Current User Alcohol Use Standard Drinks/Week Comments Not Asked 0 (1 standard drink = 0.6 oz pure alcoho l) Sex Assigned at Date Recorded Not on file documented as of this encounter Last Filed Vital Signs Vital Sign Reading Time Taken Comments Blood Pressure 132/84 06/07/2011 1537 EST Pulse 64 06/07/2011 1537 EST Temperature - - Respiratory Rate - - Oxygen Saturation - - Inhaled Oxygen Concentration - - Weight 87.7 kg (193 lb 6.4 oz) 06/07/2011 1537 EST Height 170.2 cm (5' 7) 06/07/2011 1537 EST Body Mass Index 30.29 06/07/2011 1537 EST documented in this encounter Progress Notes Loulou Pierre - 06/07/2011 1647 EST Subjective: Patient ID: Jaden Lozano is an 40 y.o. male. Chief Complaint Patient presents with ??? Goiter MNG- f/u HPI Mr Lozano is a 40 yo male with a history of hashimotos thyroiditis induced hypothyroidism. He was first diagnosed during the summer, when his TSH was found to be 12, free T4 0.8 and TPO ab >1000. He also reported feeling fatigue at that time. We started him on levothyroxine and he reports significant improvement in his symptoms. He has been taking synthroid 75 mcg, and his last TSH is 2. He de nies pain or enlargement in his neck, changes in his hair, nails or skin, he has normal BM, denies palpitations. At the time of his diagnosis he also had a thyroid US which reported a multinodular goiter with two dominant left and right thyroid nodules measuring 1 cm. There was no evidence of thyroid nodules during his physical examination during that appointment and thyroid US repeated during that appt no nodules were appreciated. He is currently on synthroid 75 mcg daily. He takes the medication daily on an empty stomach. His most recent TSH was 2.7 (05/06) Family History, social History, PMH reviewed, no chages. Social History Substance Use Topics ??? Smoking status: Never Smoker ??? Smokeless tobacco: Current User ??? Alcohol Use: Not on file Current Outpatient Prescriptions on File Prior to Visit Medication Sig Dispense Refill ??? levothyroxine (SYNTHROID) 75 mcg tablet Take 1 Tab by mouth daily. 90 Tab 4 ??? metoprolol (LOPRESSOR) 25 mg tablet Take 25 mg by mouth daily. ??? omeprazole (PRILOSEC) 40 mg capsule Take 40 mg by mouth daily. No Known Allergies ROS - See HPI. Otherwise negative on a 10 point review of systems. Objective: BP 132/84 Pulse 64 Ht 170.2 cm (67) Wt 87.726 kg (193 lb 6.4 oz) BMI 30.29 kg/m2 Physical Exam Constitutional: He is oriented to person, place, and time. He appears well- developed and well-nourished. HENT: Head: Normocephalic and atraumatic. Eyes: Conjunctivae and EOM are normal. Pupils are equal, round, and reactive to light. Neck: Normal range of motion. Neck supple. Thyromegaly present. Cardiovascular: Normal rate, regular rhythm and normal heart sounds. Pulmonary/Chest: Effort normal and breath sounds normal. No respiratory distress. Abdominal: Soft. Bowel sounds are normal. He exhibits no distension. There is no tenderness. Musculoskeletal: Normal range of motion. Neurological: He is alert and oriented to person, place, and time. He has normal reflexes. Skin: Skin is intact. Psychiatric: He has a normal mood and affect. Imaging: Utilizing a [employer] System, a biplanar B-mode ultrasound was performed of the thyroid and neck structures. The right lobe of the thyroid measures 1.45x1.95x3.86 centimeters. The left lobe of the thyroid measures 2.40x1.52x1.84 centimeters. The isthmus of the gland measures 0.23centimeters. The echotexture of the gland is heterogenous. There are no nodules in the gland . There is no lymphadenopathy identified. Assessment: Hashimotos thyroiditis induced hypothyroidism clinically and biochemically euthyroid. US performed in our clinic today, did not show any thyroid nodules, but just the typical heterogenous appearance ofhis thyroid gland and thickened isthmus probably secondary to Hashimotos thyroiditis. There is no need for a repeat thyroid US unless his clinical status changes or obstructive symptoms develop. Mr. Ricks understand our plan. His thyroid function test should be monitor annually or every 6 months. He will continue to follow up with hist primary care physician. Plan: 1. Continue Levothyroxine 75 mcg. 2. TSH annually or every 6 months. 3. Follow up with primary care physician or with us if further questions. Attestation: I saw and examined the patient with the resident/fellow 06/07/2011. I agree with the findings and plan of care documented in the resident's/fellow's note. Bienvenido Saba MD 06/10/2011 11:06 documented in this encounter Procedure Notes Tissue Recovery Technician, Scan - 06/10/2011 0820 ESTAssociated Order(s): RADIOLOGY - SCANNED documented in this encounter Plan of Treatment Not on filedocumented as of this encounter Procedures Procedure Name Priority Date/Time Associated Diagnosis Comme nts RADIOLOGY - 06/10/2011 8:20 Results for this SCANNED EST procedure are i n the results section. ENDOCRINE CLINIC Routine 06/07/2011 Unspecified Results for this US THYROID hypothyroidism procedure are in the results section. documented in this encounter Results RADIOLOGY - SCANNED (06/10/2011 8:20 EST) Specimen Narrative This result has an attachment that is no t available. Transcriptions Tissue Recovery Technician, Scan - 06/10/2011 8:20 ES T ENDOCRINE CLINIC US THYROID (06/07/2011) Anatomical Region Laterality Modality Other Impressions POINT OF CARE - 06/07/2011 Utilizing a [employer] System, a biplanar B-mode ultrasound was performed of the thyroid and neck struct ures. ??The right lobe of the thyroid measures 1.45x1.95x3.86 cent imeters. ??The left lobe of the thyroid measures 2.40x1.52x1.884 centimeters. ??The isthmus of the gland measures 0.23centimeters. ? ?The echotexture of the gland is heterogenous. ??There are no no dules in the gland . There is no lymphadenopathy identified. Performing Organization Address City/State/ZIP Code Phon e Number [facility] POINT OF CARE POINT OF CARE documented in this encounter Visit Diagnoses Diagnosis Unspecified hypothyroidism - Primary documented in this encounter Discontinued Medications Medication Sig Discontinue Reason Start Date End Date levothyroxine (SYNTHROID) Take 1 Tab by Duplicate Therapy 1 06/07/2011 75 mcg tablet mouth daily. documented as of this encounter Care Teams Planisher Relationship Specialty Start Date End Date Inocente Chacon MD PCP - General 12/01/08 [address] [place] [address] documented as of this encounter
--- OUTSIDE RECORDS SUMMARY | 2022-02-04 01:35 | XMS_ITS | Continuity of Care Document ---
:1970 Author Organization [facility] Address [address] [place] [address] Care Team Providers Name Role Phone Inocente Chacon Primary Care Physician Noy Sanchez Attending Physician Unavailable Allergies, Adverse Reactions, Alerts Allergen Type Severity Reaction Last Updated Verified Status NO KNOWN DRUG ALLERGIES Allergy February 11, 2011 N Active Medications Active Medications Medication Dose Units Route Sig Qty Days Start Discontinued Status I nstructions Date Date Metoprolol 25 mg ORAL DAILY January Omeprazole 40 mg ORAL DAILY January Levothyroxine 50 MCG ORAL DAILY January Problem List No problem information available. Procedures Procedure Date Status CHEST 2 VW September 16, 2015 completed Relevant Diagnostic Tests and/or Laboratory Data Laboratory Results Test Date/Time Result Interp. Ref. Range Result Comment Sodium Level April 10, 140 mmol/L 070-904 2611 2:49pm Potassium Level April 10, 4.3 mmol/L 3.6-5.0 2014 2:49pm Chloride Level April 10, 101 mmol/L 98-107 2014 2:49pm Carbon Dioxide Level April 10, 28 mmol/L -2014 2:49pm Anion Gap April 10-2014 2:49pm Blood Urea Nitrogen April 10, 18 mg/dL 8-2014 2:49pm Creatinine April 10, 0.81 mg/dL 0.66-1.25 2014 2:49pm Glomerular Filtration April 10, > 60 mL/min Rate Calc 2014 2:49pm Glucose Level April 10, 84 mg/dL 70-100 2014 2:49pm Calcium Level April 10, 9.4 mg/dL 8.4-10.2 2014 2:49pm Calcium Adjusted for April 10, 9.1 mg/dL 8.4-10.2 Albumin 2014 2:49pm Total Bilirubin April 10, 0.6 mg/dL 0.2-1.3 2014 2:49pm Aspartate Amino Transf April 10, 36 U/L 17-59 (AST/SGOT) 2014 2:49pm Alanine April 10, 37 U/L 21-72 Aminotransferase 2014 2:49pm (ALT/SGPT) Total Protein April 10, 7.3 g/dL 6.3-8.2 2014 2:49pm Albumin April 10, 4.7 g/dL 3.5-5.0 2014 2:49pm Cholesterol Level April 10, 248 mg/dL High 59-199 2014 2:49pm HDL Cholesterol April 10, 76 mg/dL High 40-60 The [employer] Cholesterol Education Program (NCEP) has set the following guidelines (reference values) for cholesterol, HDL: 2014 2:49pm Low HDL: <40 mg/dL Normal: 40-60 mg/dL Desirable: >60 mg/dL LDL Cholesterol April 10, 161.4 mg/dL High 0-129 2014 2:49pm VLDL Cholesterol April 10, 10.6 mg/dL 0-32 2014 2:49pm Cholesterol/HDL Ratio April 10, 3.26 0-3.9 2014 2:49pm Triglycerides Level April 10, 53 mg/dL 0-149 2014 2:49pm Alkaline Phosphatase April 10, 55 U/L 38-126 2014 2:49pm Thyroid Stimulating April 10, 4.67 mlU/L 0.47-4.68 Hormone (TSH) 2014 2:49pm Advance Directives Advance Directive Response Recorded Date/Time Does the patient have a living will? Yes Nov 7:22am Does the patient have an advanced directive? Yes December 03, 2010 7:22am Power of Car Washer? Yes December 03, 2010 7:22am Chief Complaint and Reason for Visit Encounter Admit Date Chief Complaint Reason for Visit Registered Clinical September 16, 2015 10:59am XRAY Hospital Discharge Instructions No known hospital discharge instructions. Hospital Discharge Medications Medication Dose Units Route Sig Qty Days Order Date Status In structions Metoprolol Tartrate 25 mg ORAL DAILY February 112010 Omeprazole 40 mg ORAL DAILY February 112010 Levothyroxine 50 MCG ORAL DAILY February 162010 Encounters Encounter Facility Location Admit Date Discharge Attending Date Provider Registered Meagan Desir September 15, Emerald perkins [facility] 2016 Maria E fraser 10:59am Registered [facility] April 10 Daniel [facility] 2014 5:47pm Courtney edgar Functional Status No known functional status. Immunizations No known immunizations. Payers Payer Policy Type Covered Covered Relationship Subscriber Subs criber Id Name Republican Republican Id [employer] TAMMIE [id number] SELF/SAME TAMMIE AVILA [id number] [place] PATIENT Plan of Care No known plan of care. Social History No known social history. Vital Signs No known vital signs results.
--- OUTSIDE RECORDS SUMMARY | 2022-02-04 01:35 | XMS_ITS | Continuity of Care Document ---
:1970 Author Organization [facility] Address [address] [place] [address] Care Team Providers Name Role Phone Inocente Chacon Primary Care Physician Inocente Chacon Attending Physician Allergies, Adverse Reactions, Alerts Allergen Type Severity Reaction Last Updated Verified Status No Known Drug Allergies Allergy February 11, 2011 N Active Medications Active Medications Medication Dose Units Route Sig Start Date Status Metoprolol Tartrate 25 MG ORAL DAILY February 11, 2011 Active Omeprazole 40 MG ORAL DAILY February 11, 2011 Act edward Levothyroxine 50 MCG ORAL DAILY February 16, 2011 Active Problem List No problem information available. Procedures Procedure Date Status Lumbar Spine 2-3 vw December 04, 2017 completed Relevant Diagnostic Tests and/or Laboratory Data Laboratory Results Test Date/Time Result Interp. Ref. Range Result Comment Sodium Level July 25, 140 mmol/L [phone] 3:39pm Potassium Level July 25, 4.1 mmol/L 3.6-5.0 2017 3:39pm Chloride Level July 25, 102 mmol/L 98-107 2017 3:39pm Carbon Dioxide Level July 25, 23 mmol/L 2017 3:39pm Anion Gap July 25 15 7-16 2017 3:39pm Blood Urea Nitrogen July 25, 18 mg/dL -2017 3:39pm Creatinine July 25, 0.79 mg/dL 0.66-1.25 2017 3:39pm Glomerular Filtration July 25, > 60 mL/min 60.0- Rate Calc 2017 3:39pm Glucose Level July 25, 87 mg/dL 70-100 2017 3:39pm Calcium Level July 25, 10.2 mg/dL 8.4-10.2 2017 3:39pm Calcium Adjusted for July 25, 9.6 mg/dL 8.4-10.2 Albumin 2017 3:39pm Total Bilirubin Liz 30, 0.5 mg/dL 0.2-1.3 2018 3:39pm Aspartate Amino Transf July 25, 34 U/L 17-59 (AST/SGOT) 2017 3:39pm Alanine July 25, 48 U/L 21-72 Aminotransferase 2017 3:39pm (ALT/SGPT) Total Protein July 25, 7.7 g/dL 6.3-8.2 2017 3:39pm Albumin July 25, 5.1 g/dL High 3.5-5.0 2017 3:39pm Cholesterol Level July 25, 208 mg/dL High 59-199 2017 3:39pm HDL Cholesterol July 25, 53 mg/dL 40-60 The [place] Cholesterol Education Program (NCEP) has set the following guidelines (reference values) for cholesterol, HDL: 2018 3:39pm Low HDL: <40 mg/dL Normal: 40-60 mg/dL Desirable: >60 mg/dL LDL Cholesterol July 25, 141.4 mg/dL High 0-129 2017 3:39pm VLDL Cholesterol July 25, 13.6 mg/dL 0-32 2017 3:39pm Cholesterol/HDL Ratio July 25, 3.92 High 0-3.9 2018 3:39pm Triglycerides Level July 25, 68 mg/dL 0-149 2017 3:39pm Alkaline Phosphatase July 25, 51 U/L 38-126 2017 3:39pm Thyroid Stimulating January 19, 2018 14.3 mlU/L High 0.47-4.68 Th e results of Hormone (TSH) 3:33pm this assay can be falsely decrea sed in patients wh o consume Biotin . Advance Directives Advance Directive Response Recorded Date/Time Do we have a copy on file here at [facility]? Yes J 2017 5:57pm Does patient have an Advanced Directive? No December 04, 2017 5:57pm Pt has a Living Will? Yes December 03, 2010 7:22 am Pt has a Power of Oil Lease Buyer? Yes December 03 7:22am Hospital Discharge Instructions No known hospital discharge instructions. Hospital Discharge Medications Medication Dose Units Route Sig Qty Days Order Date Status In structions Metoprolol Tartrate 25 MG ORAL DAILY February 112010 Omeprazole 40 MG ORAL DAILY February 112010 Levothyroxine 50 MCG ORAL DAILY February 162010 Encounters Encounter Facility Location Admit/Visit Discharge/Departure Atte nding Date Date Provider Departed [facility] January 19, 2018 January 19, 2018 5:24 pm [facility] 5:23pm Inocente Bolivar Departed [facility] December 04, 2017 December 04, 2017 5:54pm [facility] 5:53pm [facility] Departed [facility] July 25July 25, [address] [facility] 2017 6:42pm 6:43pm Inocente Bolivar Functional Status No known functional status. Immunizations No known immunizations. Payers Payer Policy Type Covered Covered Relationship Subscriber Subs criber Id Name Republican Republican Id [employer] Commercial TAMMIE [id number] Self/Same as TAMMIE AVILA [id number] [place] Patient SELF PAY Personal Plan of Care No Known Plan of Care Information Social History No known social history. Vital Signs No known vital signs results.
--- OUTSIDE RECORDS SUMMARY | 2022-02-04 01:35 | XMS_ITS | Continuity of Care Document ---
:1970 Author Organization [facility] Address [address] [place] [address] Care Team Providers Name Role Phone Inocente [...] problem information available. Procedures Procedure Date Status Cervical Spine 4 or 5 vw April 12, 2018 active Lumbar Spine 2-3 vw December 04, 2017 completed Relevant Diagnostic Tests and/or Laboratory Data Laboratory Results Test Date/Time Result Interp. Ref. Range Result Comment Sodium Level July 25, 140 mmol/L [phone] 3:39pm Potassium Level July 25, 4.1 mmol/L 3.6-5.0 2017 3:39pm Chloride Level July 25, 102 mmol/L 98-107 2017 3:39pm Carbon Dioxide Level July 25, 23 mmol/L 2017 3:39pm Anion Gap July 25 15 7-16 2017 3:39pm Blood Urea Nitrogen July 25, 18 mg/dL 8-2017 3:39pm Creatinine July 25, 0.79 mg/dL 0.66-1.25 2017 3:39pm Glomerular Filtration July 25, > 60 mL/min 60.0- Rate Calc 2017 3:39pm Glucose Level July 25, 87 mg/dL 70-100 2017 3:39pm Calcium Level July 25, 10.2 mg/dL 8.4-10.2 2017 3:39pm Calcium Adjusted for July 25, 9.6 mg/dL 8.4-10.2 Albumin 2017 3:39pm Total Bilirubin July 25, 0.5 mg/dL 0.2-1.3 2017 3:39pm Aspartate Amino Transf July 25, 34 U/L 17-59 (AST/SGOT) 2018 3:39pm Alanine July 25, 48 U/L 21-72 Aminotransferase 2018 3:39pm (ALT/SGPT) Total Protein July 25, 7.7 g/dL 6.3-8.2 2018 3:39pm Albumin July 25, 5.1 g/dL High 3.5-5.0 2017 3:39pm Cholesterol Level July 25, 208 mg/dL High 59-199 2017 3:39pm HDL Cholesterol July 25, 53 mg/dL 40-60 The Sharla on[place] Cholesterol Education Program (NCEP) has set the [...] 51 U/L 38-126 2017 3:39pm Thyroid Stimulating May 07, 0.165 mlU/L Low 0.47-4.68 Th e results of Hormone (TSH) 2017 4:51pm this assay can be falsely decrea sed in patients wh o consume Biotin . Advance Directives Advance Directive Response Recorded Date/Time Do we have a copy on file here at [facility]? Yes J 2017 5:57pm Does patient have an Advanced Directive? No December 04, 2017 5:57pm Pt has a Living Will? Yes December 03, 2010 7:22 am Pt has a Power of Telephone Service Representative? Yes December 03 7:22am Hospital Discharge Instructions No known hospital discharge instructions. Hospital Discharge Medications Medication Dose Units Route Sig Qty Days Order Date Status In structions Metoprolol Tartrate 25 MG ORAL DAILY February 112010 Omeprazole 40 MG ORAL DAILY February 112010 Levothyroxine 50 MCG ORAL DAILY February 162010 Encounters Encounter Facility Location Admit/Visit Discharge/Departure Atte nding Date Date Provider Departed [facility] May 07, May 07, [facility] 7:16pm Inocente Bolivar Departed [facility] April 12April 12, 2018 Ezequ[facility] 2017 3:11pm 3:12pm [facility] Departed [facility] January 19, 2018 January 19, 2018 5:24 pm [facility], [facility] 04, 2017 5[facility]54[facility], [facility] 2017 6:42pm 6:43pm Inocente Bolivar Functional Status No known functional status. Immunizations No known immunizations. Payers Payer Policy Type Covered Covered Relationship Subscriber Subs criber Id Name Republican Republican Id [employer] Commercial TAMMIE [id number] Self/Same as TAMMIE AVILA [id number] [place] Patient SELF PAY Personal Plan of Care No Known Plan of Care Information Social History No known social history. Vital Signs No known vital signs results.
--- OUTSIDE RECORDS SUMMARY | 2022-02-04 01:35 | XMS_ITS | Continuity of Care Document ---
:1970 Author Organization [facility] Address [address] [place] [address] Care Team Providers Name Role Phone Angel Salinas Attending Physician Out of Town, Provider Primary Care Physician Unavailable Allergies, Adverse Reactions, Alerts No known allergies. Medications Active Medications Medication Dose Units Route Sig Start Date Status Metoprolol Succinate 50 MG ORAL DAILY August 02, 2021 Active Levothyroxine 150 MCG ORAL DAILY August 02, 2021 Active Problem List Active Problems Medical Problem Onset Date Status 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, 2016 Brachial neuritis April 12, 2018 Ganglion of joint February 17, 2015 Procedures Procedure Date Status Provider(s) Colonoscopy August 02, 2021 completed Angel Salinas MD Relevant Diagnostic Tests and/or Laboratory Data No known relevant diagnostic tests, laboratory data, and/or discharge summary. Chief Complaint and Reason for Visit Encounter Admit Date Chief Complaint Reason for Visit Departed Surgical Day August 02, 2021 Encounter for screening Care 1:13pm for malignant neoplasm of Hospital Discharge Instructions No known hospital discharge instructions. Hospital Discharge Medications Medication Dose Units Route Sig Qty Days Order Date Status In structions Metoprolol 50 MG ORAL DAILY August 02 Active Succinate 2021 Levothyroxine 150 MCG ORAL DAILY August 02, Activ e 2021 Encounters Encounter Facility Location Admit/Visit Discharge/Departure Atte nding Date Date Provider Departed [facility] August 02August 02, 2021 Rober kam, [facility] 2021 1:13pm 3:22pm Angel Bowles Functional Status No known functional status. Immunizations Immunization Name Date Given Type Covid-19 30mcg/0.3ml Pfizer (Purple top) May 01, 2021 Historical Covid-19 0.5mL JJ/Fanny October 04, 2020 Historical Plan of Care No Known Plan of Care Information Social History Query Response Date Recorded Comment Alcohol Use Yes August 02, 2021 2:26pm social Smoking Status Never smoker August 02, 2021 2:26pm Substance/Street Drug Use No August 02, 2021 2:26p m substance use type does not use August 02, 2021 1:30pm Query Response Start Date Stop Date Smoking Status Never smoker Vital Signs Vital Reading Result Reference Range Collection Date/ Time Height 5 ft 7 in August 02, 2021 1:30pm Weight 79.379 kg August 02, 2021 1:30pm Temperature 96.7 F 97.6 F-99.6 F August 02, 2021 3:20pm Pulse 67 BPM 60-100 August 02, 2021 3:20pm Respiration 12 RPM 12-24 August 02, 2021 2:37pm Pulse Oximetry 99 % 95-100 August 02, 2021 3:20pm Blood Pressure Systolic 120 100-140 August 02, 2021 3:20pm Blood Pressure Diastolic 88 50-85 Februar 2021 3:20pm
--- OUTSIDE RECORDS SUMMARY | 2022-02-04 01:35 | XMS_ITS | Continuity of Care Document ---
:1970 Author Organization [facility] Address [address] [place] [address] Care Team Providers Name Role Phone Angel [...] Date Chief Complaint Reason for Visit Registered Surgical Day August 02, 2021 Encounter for Care 1:13pm screening for malignant neoplasm of Hospital Discharge Instructions No known hospital discharge instructions. Hospital Discharge Medications Medication Dose Units Route Sig Qty Days Order Date Status In structions Metoprolol 50 MG ORAL DAILY August 02 Active Succinate 2021 Levothyroxine 150 MCG ORAL DAILY August 02 e 2021 Encounters Encounter Facility Location Admit/Visit Discharge/Departure Atte nding Date Date Provider Registered [facility] Surgical August 02, [facility] 2021 1:13pm Angel Bowles Functional Status No known functional [...] 79.379 kg August 02, 2021 1:30pm Temperature 97.5 F 97.6 F-99.6 F August 02, 2021 1:30pm Pulse 64 BPM 60-100 August 02, 2021 2:37pm Respiration 12 RPM 12-24 August 02, 2021 2:37pm Pulse Oximetry 98 % 95-100 August 02, 2021 2:37pm Blood Pressure Systolic 119 100-140 August 02, 2021 2:37pm Blood Pressure Diastolic 53 50-85 uar 2021 2:37pm
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
--- OUTSIDE RECORDS SUMMARY | 2022-02-04 01:35 | XMS_ITS | Encounter Summary ---
:1970 Author Organization [facility] Address [address] [place] [address] Care Team Providers Name Role Phone Unavailable Primary Care Provider Unavailable Encounter Details Date Type Department Care Team Description 11/21/2006 Hospital Encounter [facility] - Uriel Alvarez in [place] [facility] MD [address] [address] [place] [address] [place], [place] [phone] (Wo rk) Social History Tobacco Use Types [...]
--- OUTSIDE RECORDS SUMMARY | 2022-02-04 01:35 | XMS_ITS | Continuity of Care Document ---
:1970 Author Organization [facility] Address [address] [place] [address] Care Team Providers Name Role Phone Inocente [...] Problem List No problem information available. Procedures No known history of procedures. Relevant Diagnostic Tests and/or Laboratory Data Laboratory Results Test Date/Time Result Interp. Ref. Range Result Comment Sodium Level July 25, 140 mmol/L [phone] 3:39pm Potassium Level July 25, 4.1 mmol/L 3.6-5.0 2017 3:39pm Chloride Level July 25, 102 mmol/L 98-107 2017 3:39pm Carbon Dioxide Level July 25, 23 mmol/L 2017 3:39pm Anion Gap July 25, 15 7-16 2017 3:39pm Blood Urea Nitrogen [...] Level July 25, 208 mg/dL High 59-199 2018 3:39pm HDL Cholesterol July 25, 53 mg/dL 40-60 The Sharla on[place] Cholesterol Education Program (NCEP) has set the following guidelines (reference values) for cholesterol, HDL: 2018 3:39pm Low HDL: <40 mg/dL Normal: 40-60 mg/dL Desirable: >60 mg/dL LDL Cholesterol July 25, 141.4 mg/dL High 0-129 2018 3:39pm VLDL Cholesterol July 25, 13.6 mg/dL 0-32 2017 3:39pm Cholesterol/HDL Ratio July 25, 3.92 High 0-3.9 2018 3:39pm Triglycerides Level July 25, 68 mg/dL 0-149 2017 3:39pm Alkaline Phosphatase July 25, 51 U/L 38-126 2017 3:39pm Thyroid Stimulating July 25, 1.53 mlU/L 0.47-4.68 Hormone (TSH) 2018 3:39pm Advance Directives Advance Directive Response Recorded Date/Time Does patient have an Advanced Directive? Yes December 03, 2010 7:22am Pt has a Living Will? Yes December 03, 2010 7:22 am Pt has a Power of Roller Print Tender? Yes December 03 7:22am Hospital Discharge Instructions No known hospital discharge instructions. Hospital Discharge Medications Medication Dose Units Route Sig Qty Days Order Date Status In structions Metoprolol Tartrate 25 MG ORAL DAILY February 112010 Omeprazole 40 MG ORAL DAILY February 112010 Levothyroxine 50 MCG ORAL DAILY February 162010 Encounters Encounter Facility Location Admit/Visit Discharge/Departure Atte nding Date Date Provider Departed [facility] July 25July 25, 2017 [facility] 2018 6:42pm 6:43pm [facility] Functional Status No known functional status. Immunizations No known immunizations. Payers Payer Policy Type Covered Covered Relationship Subscriber Subs criber Id Name Green Party Green Party Id [employer] Commercial TAMMIE [id number] Self/Same as TAMMIE AVILA [id number] [place] Patient SELF PAY Personal Plan of Care No Known Plan of Care Information Social History No known social history. Vital Signs No known vital signs results.
--- OUTSIDE RECORDS SUMMARY | 2022-02-04 01:35 | XMS_ITS | Continuity of Care Document ---
:1970 Author Organization [facility] Address [address] [place] [address] Care Team Providers Name Role Phone Angel [...] August 02, 2021 completed Angel Salinas MD DIAGNOSTIC COLONOSCOPY August 02, 2021 active Relevant Diagnostic Tests and/or Laboratory Data No [...] Metoprolol 50 MG ORAL DAILY August 02 Succinate 2021 Levothyroxine 150 MCG ORAL DAILY August 02, Activ e 2021 Encounters Encounter Facility Location Admit/Visit Discharge/Departure Atte nding Date Date Provider Departed [facility] August 02, August 02, 2021 Rober kam, [facility] 2021 1:13pm 3:22pm Angel Bowles Functional [...]
--- OUTSIDE RECORDS SUMMARY | 2022-02-04 01:35 | XMS_ITS | Continuity of Care Document ---
:1970 Author Organization [facility] Address [address] [place] [address] Care Team Providers Name Role Phone Inocente [...] Comment Sodium Level July 25, 140 mmol/L [phone] 3:39pm Potassium Level July 25, 4.1 mmol/L [...] July 25, 53 mg/dL 40-60 The [place]la [place] Cholesterol Education Program (NCEP) has set the [...] have [place] [facility] [place] J 2017 5:57pm Does patient have an Advanced Directive? No December 04, 2017 5:57pm Pt has a Living Will? 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 Yes December 03 7:22am Hospital Discharge Instructions No known hospital discharge instructions. Hospital Discharge Medications Medication Dose Units Route Sig Qty Days Order Date Status In structions Metoprolol Tartrate 25 MG ORAL DAILY February 112010 Omeprazole 40 MG ORAL DAILY February 112010 Levothyroxine 50 MCG ORAL DAILY February 162010 Encounters Encounter Facility Location Admit/Visit Discharge/Departure Atte nding Date Date Provider Departed [facility] January 19, 2018 January 19, 2018 5:24 pm [facility] 5:23pm Inocente Bolivar Departed [facility] December 04, 2017 December 04, 2017 5:54pm [facility] 5:53pm [facility] Departed [facility] July 25July 25, 2017 [facility] 2017 6:42pm 6:43pm Inocente Bolivar Functional Status No known functional status. Immunizations No known immunizations. Payers Payer Policy Type Covered Covered Relationship Subscriber Subs criber Id Name Constitution Party Constitution Party Id [employer] Commercial TAMMIE [id number] Self/Same as TAMMIE AVILA [id number] [place] Patient SELF PAY Personal Plan of Care No Known Plan of Care Information Social History No known social history. Vital Signs No known vital signs results.
--- OUTSIDE RECORDS SUMMARY | 2022-02-04 01:35 | XMS_ITS | Continuity of Care Document ---
:1970 Author Organization [facility] Address [address] [place] [address] Care Team Providers Name Role Phone Angel [...] Status Provider(s) Colonoscopy August 02, 2021 completed Agnel Salinas MD DIAGNOSTIC COLONOSCOPY August 02, 2021 [...] Discharge/Departure Atte nding Date Date Provider Departed [facility] Surgical August 02, August 02, 2021 Rober kam, [facility] 2021 1:13pm 3:22pm Angel Bowles [...]
--- OUTSIDE RECORDS SUMMARY | 2022-02-04 01:35 | XMS_ITS | Continuity of Care Document ---
:[address] [facility] Address [address] [place] [address] Care Team Providers Name Role Phone Inocente [...] Comment Sodium Level July 25, 140 mmol/L [phone] 3:39pm Potassium Level July 25, 4.1 mmol/L [...] 7:22 am Pt has a Power of Radiology Asst? Yes December 03 7:22am Hospital Discharge Instructions No known hospital discharge instructions. Hospital Discharge Medications Medication Dose Units Route Sig Qty Days Order Date Status In structions Metoprolol Tartrate 25 MG ORAL DAILY February 112010 Omeprazole 40 MG ORAL DAILY February 112010 Levothyroxine 50 MCG ORAL DAILY February 162010 Encounters Encounter Facility Location Admit/Visit Discharge/Departure Atte nding Date Date Provider Departed [facility] July 25July 25, 2017 [facility] 2018 6:42pm 6:43pm [facility] Functional Status No known functional status. Immunizations No known immunizations. Payers Payer Policy Type Covered Covered Relationship Subscriber Subs criber Id Name Libertarian Libertarian Id [employer] Commercial TAMMIE [id number] Self/Same as TAMMIE AVILA [id number] [place] Patient SELF PAY Personal Plan of Care No Known Plan of Care Information Social History No known social history. Vital Signs No known vital signs results.
--- OUTSIDE RECORDS SUMMARY | 2022-02-04 01:35 | XMS_ITS | Continuity of Care Document ---
:1970 Author Organization [facility] Address [address] [place] [address] Care Team Providers Name Role Phone Inocente Chacon Primary Care Physician Zander Chacon Attending Physician Unavailable Allergies, Adverse Reactions, Alerts [...] Comment Sodium Level July 25, 140 mmol/L [phone] 3:39pm Potassium Level July 25, 4.1 mmol/L [...] July 25, 53 mg/dL 40-60 The [place] Cholesterol Education Program (NCEP) has set the following guidelines (reference values) for cholesterol, HDL: 2018 3:39pm Low HDL: <40 mg/dL Normal: 40-60 mg/dL Desirable: >60 mg/dL LDL Cholesterol July 25, 141.4 mg/dL High 0-129 2017 3:39pm VLDL Cholesterol July 25, 13.6 mg/dL 0-32 2017 3:39pm Cholesterol/HDL Ratio July 25, 3.92 High 0-3.9 2017 3:39pm Triglycerides Level July 25, 68 mg/dL 0-149 2017 3:39pm Alkaline Phosphatase July 25, 51 U/L 38-126 2017 3:39pm Thyroid Stimulating July 25, 1.53 mlU/L 0.47-4.68 Hormone (TSH) 2017 3:39pm Advance Directives Advance Directive Response Recorded Date/Time Do we have a copy on file here at [facility]? Yes J 2017 5:57pm Does patient have an Advanced Directive? No December 04, 2017 5:57pm Pt has a Living Will? Yes December 03, 2010 7:22 am Pt has a Power of [place]? Yes December 03 1 7:22am Chief Complaint and Reason for Visit Encounter Admit Date Chief Complaint Reason for Visit Departed Clinical December 04, 2017 5:53pm Xray Hospital Discharge Instructions No known hospital discharge instructions. Hospital Discharge Medications Medication Dose Units Route Sig Qty Days Order Date Status In structions Metoprolol Tartrate 25 MG ORAL DAILY February 112010 Omeprazole 40 MG ORAL DAILY February 112010 Levothyroxine 50 MCG ORAL DAILY February 162010 Encounters Encounter Facility Location Admit/Visit Discharge/Departure Atte nding Date Date Provider Departed [facility] December 04, 2017 December 04, 2017 5:54pm [facility] 5:53pm [facility] Departed [facility] July 25July 25, 2017 [facility] 2017 6:42pm 6:43pm Inocente Bolivar Functional Status No known functional status. Immunizations No known immunizations. Payers Payer Policy Type Covered Covered Relationship Subscriber Subs criber Id Name Democrat Democrat Id [employer] Commercial TAMMIE [id number] Self/Same as TAMMIE AVILA [id number] [place] Patient SELF PAY Personal Plan of Care No Known Plan of Care Information Social History No known social history. Vital Signs No known vital signs results.
--- OUTSIDE RECORDS SUMMARY | 2022-02-04 01:35 | XMS_ITS | Continuity of Care Document ---
:1970 Author Organization [facility] Address [address] [place] [address] Care Team Providers Name Role Phone Angel Slainas Attending Physician Out of Town, Provider Primary [...] Date Status Provider(s) Colonoscopy August 02, 2021 active Angel Salinas MD Relevant Diagnostic Tests and/or [...] Discharge/Departure Atte nding Date Date Provider Registered [facility] August 02, [facility] 2021 1:13pm Angel Bowles Functional Status [...] F-99.6 F August 02, 2021 1:30pm Pulse 59 BPM 60-100 August 02, 2021 2:22pm Respiration 12 RPM 12-24 August 02, 2021 2:22pm Pulse Oximetry 98 % 95-100 August 02, 2021 2:22pm Blood Pressure Systolic 139 100-140 August 02, 2021 2:22pm Blood Pressure Diastolic 88 50-85 uar 2021 2:22pm
--- OUTSIDE RECORDS SUMMARY | 2022-02-04 01:35 | XMS_ITS | Continuity of Care Document ---
:1970 Author Organization [facility] Address [address] [place] [address] Care Team Providers Name Role Phone Inocente Chacon Primary Care Physician Arnel Pena Attending Physician Allergies, Adverse Reactions, Alerts Allergen [...] Comment Sodium Level July 25, 140 mmol/L [phone] 3:39pm Potassium Level July 25, 4.1 mmol/L [...] [place] [facility] [place] J [place] 5:57pm Does patient have an Advanced Directive? No December 04, 2017 5:57pm Pt has a Living Will? 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 Hospital Discharge Medications Medication Dose Units Route Sig Qty Days Order Date Status In structions Metoprolol Tartrate 25 MG ORAL DAILY February 112010 Omeprazole 40 MG ORAL DAILY February 112010 Levothyroxine 50 MCG ORAL DAILY February 162010 Encounters Encounter Facility Location Admit/Visit Discharge/Departure Atte nding Date Date Provider Departed [facility]April 12, [facility]:12[facility] Dep[facility]ed [facility] January 19, 2018 January 19, 2018 5:24 pm [facility] 5:23pm [facility] 04, 2017 December 04, 2017 5:54pm [facility]53pm [facility]July 25, 2017 [facility] 2017 6:42pm 6:43pm Inocente Bolivar Functional Status No known functional status. Immunizations No known immunizations. Payers Payer Policy Type Covered Covered Relationship Subscriber Subs criber Id Name Republican Republican Id [employer] Commercial TAMMIE [id number] Self/Same as TAMMIE AVILA [id number] [place] Patient SELF PAY Personal Plan of Care No Known Plan of Care Information Social History No known social history. Vital Signs No known vital signs results.
--- OUTSIDE RECORDS SUMMARY | 2022-02-04 01:35 | XMS_ITS | Continuity of Care Document ---
:1970 Author Organization [facility] Address [address] [place] [address] Care Team Providers Name Role Phone Angel [...] Discharge/Departure Atte nding Date Date Provider Departed [facility] Surgical August 02, August 02, 2021 Rober kam, [facility] 2021 1:13pm 3:22pm Angel Bowles Functional [...]
--- OUTSIDE RECORDS SUMMARY | 2022-02-04 01:35 | XMS_ITS | Continuity of Care Document ---
:1970 Author Organization [facility] Address [address] [place] [address] Care Team Providers Name Role Phone Angel [...] Discharge/Departure Atte nding Date Date Provider Departed [facility] August 02, August 02, 2021 Rober kam, [facility] 2021 1:13pm 3:22pm Angel Bowles [...]
--- OUTSIDE RECORDS SUMMARY | 2022-02-04 01:35 | XMS_ITS | Continuity of Care Document ---
:[address] [facility] Address [address] [place] [address] Phone Care Team Providers Name Role Phone MD Angel Salinas Attending Provider Out of Town, Provider Primary Care Provider Unavailable Chief Complaint and Reason for Visit Chief Complaint Encounter for screening for malignant neoplasm of Allergies, Adverse Reactions, Alerts No known allergies Social History Smoking Status Status Start Date End Date Date of Observat ion Never smoked tobacco (finding) F ebruary 2021 2:26pm Observation Status Observation Response Date of Response Alcohol Use Yes August 02, 2021 2 :26pm Substance/Street Drug Use No August 02, 2021 2:26pm substance use type does not use August 02, 2021 1 :30pm Smoking Status Never smoker August 02, 2021 2 :26pm Additional Data Assigned Sex Male Family History Relationship Condition Age at Onset Recorded Date/Ti me Parent Family history non-contributory Unknown Parent Family history non-contributory Unknown Problems Active Problems Medical Problem Onset Date Status 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, 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, 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 Ganglion of joint February 17, 2015 Active Medications Medication Status Dose Units Route Directions Qty Days Start End Ins tructions Date Date Metoprolol Active 50 MG PO DAILY July 1:28pm Levothyroxine Active 150 MCG PO DAILY August 02, 2021 1:28pm Immunizations Immunization Event Date Not Given 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 [email or web address]_address [email or web address]_city, fa cadd.state [email or web address].post_code OPERATIVE PROCEDURE REPORT PATIENT: Tammie Lozano DATE: 022 MR# [id number] PROCEDURE: Colonoscopy, screening BIRTHDATE: 1970 ENDOSCOPIST: Jayson Salinas M.D. GENDER: male EMPLOYEE WELFARE MANAGER: Marlen Jensen RN, Naa Hurley RN, and Elaine Abdullahi RN INDICATIONS: Screening colonoscopy MEDICATIONS: See nurses documentation DESCRIPTION OF PROCEDURE: After the ris ks benefits and alternatives of the procedure were thoroughly explained, in formed consent was obtained. Digital rectal exam was performed and revealed 1. no abnormalities of the rectum. The Colon EC-760R-V/[id number] ([id number]) endos cope was introduced through the anus and advanced to the cecum. The quality of t he prep was The overall prep quality was good.. The instrument was then slow ly withdrawn as the colon was fully examined. The patient was monitored thr oughout for IV conscious sedation to include oximetry, telemetry and blood p ressure monitoring. COLON FINDINGS: A normal appearing cecu m, ileocecal valve, and appendiceal orifice were identified. The ascending, transverse, descending, sigmoid colon, and rectum appeared unremarkable. Retro flexed views revealed no abnormalities. The scope was then completely withdrawn from the patient and the procedure terminated. COMPLICATIONS: There were no complicati ons. IMPRESSION: Normal colonoscopy otherwis e RECOMMENDATIONS: Follow-up: Office PRN REPEAT EXAM: Return in 10 years Colonos copy or as needed for changes.. CC: Johny Castaneda NP FACILITY: [facility] D ATE: 08/02/2021 TIME: 2:38 PM Vital Signs Vital Reading Result Reference Range Collection Date/ Time Height 67 [in_i] August 02 1:30pm Weight 79.37 kg August 02 1:30pm Body Temperature 96.7 [degF] 97.6-99.6 August 02 022 3:20pm Heart Rate 67 /min 60-100 August 02 3:20pm Respiratory rate 12 /min 12-24 August 02, 2 022 2:37pm Oxygen saturation by Pulse 99 % 95-100 2021 3:20pm oximetry BP Systolic 120 mm[Hg] 100-140 August 02 3:20pm BP Diastolic 88 mm[Hg] 50-85 August 02 3:20pm Inhaled oxygen flow rate 1 L/min uar y 2021 2:45pm Advance Directives Advance Directive Response Recorded Date/Time Does patient have an Advanced Directive? No December 04, 2017 4:57pm [place] [facility] [place] J 2017 4:57pm Pt has a Living Will? Yes December 03, 2010 6: 22am Do we [place] a [place] [facility] [place] J [facility] 2017 4:57pm Pt has a Power of Road [place]? Yes December 03 6:22am Do we [place] a [place] [facility] [place] J [facility] 2017 4:57pm Insurance Providers Guarantor TAMMIE LOZANO Address [address] [place] [id number] Contact Info. [place] Phone: Payer Policy Id Coverage Id Subscriber's Subscriber Id Effective E xpiration Name Date Date ALEYDA [id number] TAMMIE LOZANO [id number] 2006 SELF PAY Self N/A Encounters Encounter Location(s) Arrival/Admit Date Discharge/Depart Date Provider(s) Departed [facility] August 02, 2021 August 02, 2021 [facility] 1:13pm 3:22pm MD [facility] Goals Acute Goals Patient remains free from: Fluid/electrolyte imbalance S/sx thrombophlebitis Abdominal distention S/sx ileus Constipation * Uses pain scale appropriately * Identify options for pain control - Analgesics - Narcotics - Non-medication measures * Verify required physcial preparations have been accomplished * Verify required procedures/tests have been completed * Verify required clinical documentation is available for review * Exhibits granulation/healing at site * Exhibits decreased drainage at site * Exhibits no s/s of infection * Exhibits a decrease in lesion size * Maintains nutritional status * Maintains hydration status * Maintains optimal lab values * Exhibits capillary refill < 3 seconds * Maintains strong peripheral pulses * Verbalizes absence of pain * Exhibits baseline skin warmth, color * Maintains baseline blood pressure * Maintains urine output of 30 cc/hr
--- OUTSIDE RECORDS SUMMARY | 2022-02-04 01:35 | XMS_ITS | Continuity of Care Document ---
:[address] [facility] Address [address] [place] [address] Care Team Providers Name Role Phone Inocenet Chacon Primary Care Physician Inocente Chacon Attending [...] Comment Sodium Level July 25, 140 mmol/L [phone] 3:39pm Potassium Level July 25, 4.1 mmol/L [...] have a copy [place] here [place] [facility] [place] Yes J 2017 5:57pm Does patient have an Advanced Directive? No December 04, 2017 5:57pm Pt has a Living Will? 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 Yes December 03 7:22am Hospital Discharge Instructions No known hospital discharge instructions. Hospital Discharge Medications Medication Dose Units Route Sig Qty Days Order Date Status In structions Metoprolol Tartrate 25 MG ORAL DAILY February 112010 Omeprazole 40 MG ORAL DAILY February 112010 Levothyroxine 50 MCG ORAL DAILY February 162010 Encounters Encounter Facility Location Admit/Visit Discharge/Departure Atte nding Date Date Provider Departed [facility] May 07, May 07, [facility] 7:16pm Inocente Bolivar Departed [facility] April 12April 12, 2018 Ezequiel [facility] 2017 3:11pm 3:12pm [facility] Departed [facility] January 19, 2018 January 19, 2018 5:24 pm [facility] 5[facility]23pm [facility], 2017 December 04, 2017 5:54pm [facility] 5:53pm [facility] July 25July 25, 2017 [facility] 2017 6:42pm 6:43pm Inocente Bolivar Functional Status No known functional status. Immunizations No known immunizations. Payers Payer Policy Type Covered Covered Relationship Subscriber Subs criber Id Name Alliance Party Alliance Party Id [employer] Commercial TAMMIE [id number] Self/Same as TAMMIE AVILA [id number] [place] Patient SELF PAY Personal Plan of Care No Known Plan of Care Information Social History No known social history. Vital Signs No known vital signs results.
[2022-02-04 07:47] LABS: TSH 4.13 uIU/mL (0.36-3.74)
== END 2022-02-04 01:33 | disposition home or self-care (01) ==
LOC: LBO 01:32
PROVIDERS: PCP Nurse Practitioner Family; Visit Provider Nurse Practitioner Family
DX: E06.3 Autoimmune thyroiditis (principal)
CPT/HCPCS: 36415; 84443

== ENCOUNTER 2022-07-01 02:55 | Outpatient (CLI) | payer OTHER, SELFPAY ==
[2022-07-01 16:59] LABS: TSH 2.87 uIU/mL (0.36-3.74)
== END 2022-07-01 02:56 | disposition home or self-care (01) ==
LOC: LBO 02:56
PROVIDERS: PCP Nurse Practitioner Family; Visit Provider Nurse Practitioner Family
DX: E06.3 Autoimmune thyroiditis (principal)
CPT/HCPCS: 36415; 84443

== ENCOUNTER 2022-09-02 01:06 | Outpatient (CLI) | payer OTHER, SELFPAY ==
--- NOTE | 2022-09-02 06:30 | DI.RAD_ITS ---
Exam(s) XR CHEST 2V PA LATERAL EXAM: XR CHEST 2V PA LATERAL CLINICAL HISTORY: cough, h/o sarcoidosis,R05.9 TECHNIQUE: 2D digital imaging was performed of the chest. Two images were obtained. PA and lateral views were obtained. COMPARISON: No exams were available for comparison FINDINGS: MEDIASTINUM: Normal. HEART: Normal. PULMONARY VASCULATURE: Normal. LUNGS: Clear. PLEURAL SPACE: No pleural effusion or pneumothorax. BONE:Within normal limits for the patient's age. OTHER FINDINGS:Normal. IMPRESSION: No acute pulmonary findings. DATA REPOSITORY: RADIATION DOSE DELIVERED:
== END 2022-09-02 01:26 ==
LOC: DI 01:07
PROVIDERS: PCP Nurse Practitioner Family; Visit Provider Student in an Organized Health Care Education/Training Program
DX: R05.9 Cough, unspecified (principal); D86.9 Sarcoidosis, unspecified
CPT/HCPCS: 71046

== ENCOUNTER 2022-09-12 04:08 | Outpatient (CLI) | payer OTHER, SELFPAY ==
[2022-09-12] MEDS: Methacholine 100 MG VIAL IH (17:20)
[2022-09-12] MEDS: Inhaler, Assist Device 1 EACH MC (17:20)
[2022-09-12] MEDS: Albuterol HFA 18 GM 200 PUFF INH IH (17:20)
--- NOTE | 2022-09-14 12:51 | W.PFT ---
Date of service: 09/12/22 Time of Service: 14:55 Pulmonary Function Test Result Requesting Provider Abdias Indications: Cough Interpretation Spirometry: No airflow limitation. There was a 5% decrease in FEV1% with administration of 16mg/mL methacholine. There was inspiratory loop blunting with administration of methacholine. Lung Volumes: Normal lung volumes Diffusion Capacity: Normal diffusion Airway Pressure: Normal airways resistance Impression Normal pulmonary function but with inspiratory loop blunting with administration of methacholine. Clinical Correlation therefore is recommended.
== END 2022-09-12 04:09 | disposition home or self-care (01) ==
LOC: RT 04:08
PROVIDERS: PCP Nurse Practitioner Family; Visit Provider Student in an Organized Health Care Education/Training Program
DX: R05.9 Cough, unspecified (principal)
CPT/HCPCS: 94060; 94070; 94726; 94729; 94010; J7674

== ENCOUNTER 2022-09-15 11:39 | Outpatient (CLI) | payer OTHER, SELFPAY ==
--- NOTE | 2022-09-15 11:00 | DI.RAD_ITS ---
Exam(s) XR HIP RT AP LAT ONLY EXAM: XR HIP RT AP LAT ONLY CLINICAL HISTORY: R ESCOBAR pain. TECHNIQUE: 2D digital imaging was performed. Two images were obtained. AP and lateral views were ob tained. COMPARISON: CR XR HIP RT AP LAT ONLY from 12/04/2020 FINDINGS: BONES: There are stable post operative changes present. No fracture or dislocation. JOINTS: The orthopedic hardware is in good position. No evidence of hardware loosening. SOFT TISSUE: Atherosclerosis is present. IMPRESSION: Stable postoperative changes. DATA REPOSITORY: RADIATION DOSE DELIVERED:
== END 2022-09-15 11:40 | disposition home or self-care (01) ==
LOC: DIORS 11:39
PROVIDERS: PCP Nurse Practitioner Family; Referring Provider Nurse Practitioner Family; Visit Provider Physician Assistant
DX: Z96.641 Presence of right artificial hip joint (principal); M25.551 Pain in right hip; Z47.1 Aftercare following joint replacement surgery
CPT/HCPCS: 73502

== ENCOUNTER 2023-02-07 03:15 | Outpatient (CLI) | payer OTHER, SELFPAY ==
[2023-02-07 17:58] LABS: CREATININE 0.9 mg/dL (0.70-1.30); Calculated LDL 178 mg/dL (<100); Cholesterol 248 mg/dL (<200); Estimated GFR 101.49 (mL/min/1.73m2); HDL Cholesterol 47 mg/dL (40-60); Potassium 3.9 mmol/L (3.5-5.1); TSH (W/Ref FT4) 0.46 uIU/mL (0.36-3.74); Triglyceride 115 mg/dL (<150)
[2023-02-07 18:16] LABS: Hemoglobin A1C 5.9 % (<5.7)
== END 2023-02-07 03:16 | disposition home or self-care (01) ==
LOC: LBO 03:15
PROVIDERS: PCP Nurse Practitioner Family; Visit Provider Nurse Practitioner Family
DX: Z13.1 Encounter for screening for diabetes mellitus (principal); E06.3 Autoimmune thyroiditis; I10 Essential (primary) hypertension
CPT/HCPCS: 36415; 80061; 82565; 83036; 84132; 84443

== ENCOUNTER 2023-06-16 16:34 | Outpatient (REF) | payer OTHER, SELFPAY ==
--- NOTE | 2023-06-16 15:25 | SKI_PTH ---
PATIENT: Jaden Lozano LOC: [facility] U#:[id number] AGE/SX: 52/M ROOM: RE06/16/[address]: COLLEEN Dickinson : 1970 BED: DIS: 06/16/2023 SPEC #: [id number] RECD: 06/20/23 12:45 STATUS: CYNTHIA RESanchez #: [id number] CAIT: 06/16/23 15:[address]: Antonio Romero DEPT: Surgical Specimen RECD BY: Airam Brooke ENTERED: 06/20/23 12:45 SP TYPE: MENDOZA MARIEE DR: Johny Castaneda, [place] Tissues: 1 - SKIN BIOPSY(SHAVE/PUNCH) Procedures: SKIN LEVEL 4 Comments: [id number]
--- OUTSIDE RECORDS SUMMARY | 2023-06-16 16:36 | XMS_ITS | Continuity of Care Document ---
Author Name Unknown Address [address] [place] [id number] [facility] Address [address] [place] [address] Phone Care Team Providers Care Automotive Service Assistant Name Role Phone MD Angel Salinas Attending Provider Out of Town, Provider Primary Care Provider Unav ailable Chief Complaint and Reason for Visit Chief Complaint Encounter for screen ing for malignant neoplasm of Allergies, Adverse Reactions, Alerts No known allergies Social History Smoking Status Status Start Date End Date Date of Observa tion Never smoked tobacco (finding) August 02, 2021 2:26pm Observation Status Observation Response Date of Response Alcohol Use Yes August 02 2:26pm Substance/Street Drug Use No Februa 2021 2:26pm substance use type does not use August 02, 2021 1:30pm Smoking Status Never smoker August 02 2:26pm Additional Data Assigned Sex Male Family History Relationship Condition Age at Onset Recorded Date/T ck Parent Family history non-contributory Unknown Parent Family history non-contributory Unknown Problems Active Problems Medical Problem Onset Date Status 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, 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, 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 Ganglion of joint February 17, 2015 Active Medications Medication Status Dose Units Route Directions Qty Days St art Date End Date Instructions Metoprolol Succinate Active 50 MG PO DAILY August 02, 2021 1:28pm Levothyroxine Active 150 MCG PO DAILY Feb ruary 2021 1:28pm Immunizations Immunization Event Date Not Given Reason Dose Number Wood Panel Inspector Lot Number Vaccine Information Statement (VIS) Detail Covid-19 30mcg/0.3ml [employer] (Purple top) May 01, 2021 Covid-19 0.5mL JJ/Fanny October 04, 2020 Procedures Procedure Date Performed Status Colonoscopy in OPD (Not Applicable) July 2:30pm completed Relevant Diagnostic Tests and/or Laboratory Data Diagnostic Imaging Reports Report Dictated Date/Time Dictated By Status Colonoscopy August 02, 2021 2:38pm Angel Salinas MD completed [facility] [email or web address] [email or web address], [email or web address] [email or web address] OPERATIVE PROCEDURE REPORT PATIENT: Tammie Lozano DATE: 08/02/2021 MR# [id number] PROCEDURE: Colonoscopy, screening BIRTHDATE: 1970 ENDOSCOPIST: Angel Salinas M.D. GENDER: male ASSOCIATE MEDIA PLANNER: Marlen Jensen RN, Naa Hurley RN, and Elaine Abdullahi RN INDICATIONS: Screening colonoscopy MEDICATIONS: See nurses documentation DESCRIPTION OF PROCEDURE: After the risks benefits and alternatives of the procedure were thoroughly explained, informed consent was obtained. Digital rectal exam was performed and revealed 1. no abnormalities of the rectum. The Colon EC-760R-V/[id number] ([id number]) endoscope was introduced through the anus and advanced to the cecum. The quality of the prep was The overall prep quality was good.. The instrument was then slowly withdrawn as the colon was fully examined. The patient was monitored throughout for IV conscious sedation to include oximetry, telemetry and blood pressure monitoring. COLON FINDINGS: A normal appearing cecum, ileocecal valve, and appendiceal orifice were identified. The ascending, transverse, descending, sigmoid colon, and rectum appeared unremarkable. Retroflexed views revealed no abnormalities. The scope was then completely withdrawn from the patient and the procedure terminated. COMPLICATIONS: There were no complications. IMPRESSION: Normal colonoscopy otherwise RECOMMENDATIONS: Follow-up: Office PRN REPEAT EXAM: Return in 10 years Colonoscopy or as needed for changes.. CC: Johny Castaneda NP FACILITY: [facility] DATE: 08/02/2021 TIME: 2:38 PM Vital Signs Vital Reading Result Reference Range Collection Date/Time Height 67 [in_i] August 02 1:30pm Weight 79.37 kg August 02 1:30pm Body Temperature 96.7 [degF] 97.6-99.6 July 3:20pm Heart Rate 67 /min 60-100 August 02 3:20pm Respiratory rate 12 /min 12-24 July 2:37pm Oxygen saturation by Pulse oximetry 99 % 95-100 August 02, 2021 3 :20pm BP Systolic 120 mm[Hg] 100-140 August 02 3:20pm BP Diastolic 88 mm[Hg] 50-85 August 02 3:20pm Inhaled oxygen flow rate 1 L/min Jul 2:45pm Advance Directives Advance Directive Response Recorded Date/ Time Does patient have an Advanced Directive? No December 04, 2017 4:57pm Do we have a copy on file here at [facility]? No December 04, 2017 4:57pm Pt has a Living Will? Yes December 03, 2010 6:22am Do we have a copy on file here at [facility]? 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 Yes December 04, 2017 4:57pm Insurance Providers Guarantor TAMMIE LOZANO Address [address] [place] [address] Contact [facility] [place] Phone: Payer Policy Id Coverage Id Subscriber's Name Subscriber Id Effective Date Expiration Date ALEYDA [id number] 1 [id number] TAMMIE LOZANO [id number] 2006 SELF PAY Self N/A Encounters Encounter Location(s) Arrival/Admit Date Discharge/Depart Date Provider(s) Departed [facility] Day Care [facility] August 02, 2021 1:13pm August 02, 2021 3:22pm Angel Salinas MD Goals Acute Goals Patient remains free from: Fluid/electrolyte imbalance S/sx thrombophlebitis Abdominal distention S/sx ileus Constipation * Uses pain scale appropriat anusha * Identify options for pain control - Analgesics - Narcotics - Non-medication measures * Verify required physcial p reparations have been accomplished * Verify required procedures/tests have been completed * Verify required clinical documentation is available for review * Exhibits granulation/heali ng at site * Exhibits decreased drainage at [...]
--- OUTSIDE RECORDS SUMMARY | 2023-06-16 16:36 | XMS_ITS | Continuity of Care Document ---
Author Name Unknown Organization [facility] Address [facility] [address] [place] [address] Phone [phone] Care Team Providers Care Mold Setter Name Role Phone SEE RUSS MD Care Team Information Rece iver Unavailable
== END 2023-06-16 16:35 | disposition home or self-care (01) ==
LOC: LBN 16:34
PROVIDERS: PCP Nurse Practitioner Family; Visit Provider Physician Assistant
DX: L30.8 Other specified dermatitis (principal)
CPT/HCPCS: 88305

== ENCOUNTER 2023-10-30 05:17 | Outpatient (CLI) | payer OTHER, SELFPAY ==
[2023-10-30 17:07] LABS: TSH (W/Ref FT4) 1.34 uIU/mL (0.36-3.74)
== END 2023-10-30 05:18 | disposition home or self-care (01) ==
LOC: LBO 05:18
PROVIDERS: PCP Nurse Practitioner Family; Visit Provider Nurse Practitioner Family
DX: E06.3 Autoimmune thyroiditis (principal)
CPT/HCPCS: 36415; 84443

== ENCOUNTER 2023-11-27 04:50 | Outpatient (CLI) | payer OTHER, SELFPAY ==
[2023-11-27 18:01] LABS: ALT 64 U/L (16-63); AST 26 U/L (15-37); Albumin 4.2 g/dL (3.4-5.0); Alkaline Phosphatase 70 U/L (46-116); BUN 18 mg/dL (7-18); Bilirubin, Total 0.3 mg/dL (0.2-1.0); CREATININE 0.8 mg/dL (0.70-1.30); Calcium 9.3 mg/dL (8.5-10.1); Calculated LDL 186 mg/dL (<100); Chloride 104 mmol/L (98-107); Cholesterol 268 mg/dL (<200); Estimated GFR 104.51 (mL/min/1.73m2); Glucose 89 mg/dL (74-106); HDL Cholesterol 56 mg/dL (40-60); Potassium 4.4 mmol/L (3.5-5.1); Sodium 140 mmol/L (136-145); Total Protein 7.3 g/dL (6.4-8.2); Triglyceride 130 mg/dL (<150)
== END 2023-11-27 04:51 | disposition home or self-care (01) ==
LOC: LBO 04:50
PROVIDERS: PCP Nurse Practitioner Family; Visit Provider Nurse Practitioner Family
DX: R42 Dizziness and giddiness (principal); Z13.1 Encounter for screening for diabetes mellitus; E78.2 Mixed hyperlipidemia
CPT/HCPCS: 36415; 80053; 80061; 83036

== ENCOUNTER 2024-09-13 11:11 | Outpatient (REF) | payer OTHER, SELFPAY ==
[2024-09-13 15:31] LABS: Abs Immature Grans 0.02 10^3/uL (0.0-0.06); Absolute Basophil Count 0.05 10^3/uL (0.0-0.2); Absolute Lymphocyte Count 1.43 10^3/uL (1.2-3.4); Absolute Monocyte Count 0.52 10^3/uL (0.1-0.8); Absolute Neutrophil Count 3.16 10^3/uL (1.2-6.7); Basophils % 0.9 %; Eosinophils % 3.7 %; HCT 45.4 % (40.0-50.0); HGB 14.8 g/dL (13.5-17.5); Immature Grans % 0.4 %; Lymphocytes % 26.6 %; MCH 28.4 pg (27.0-33.0); MCHC 32.6 % (32.0-36.0); MCV 87 fL (80-95); MPV 9.4 fL (8.0-11.0); Monocytes % 9.7 %; Neutrophils % 58.7 %; Platelet Count 290 10^3/uL (130-400); RBC 5.22 10^6/uL (4.36-5.78); RDW-SD 41.1 fL; WBC 5.38 10^3/uL (4.4-10.8)
[2024-09-13 15:54] LABS: Anion Gap 9.3 mmol/L (3-11); BUN 17 mg/dL (7-18); CO2 24.7 mmol/L (21.0-32.0); CREATININE 0.8 mg/dL (0.70-1.30); Calcium 9.1 mg/dL (8.5-10.1); Calculated LDL 201 mg/dL (<100); Chloride 109 mmol/L (98-107); Cholesterol 274 mg/dL (<200); Estimated GFR 104.51 (mL/min/1.73m2); Glucose 102 mg/dL (74-106); HDL Cholesterol 59 mg/dL (>or=40); Potassium 4.5 mmol/L (3.5-5.1); Sodium 143 mmol/L (136-145); TSH 0.19 uIU/mL (0.36-3.74); Triglyceride 70 mg/dL (<150)
[2024-09-13 16:30] LABS: Hemoglobin A1C 5.6 % (<5.7)
[2024-09-13 22:03] LABS: T4, Free 1.4 ng/dL (0.8-2.2)
[2024-09-13 23:22] LABS: Hepatitis C Ab w Rflx HCV PCR Negative (Negative)
== END 2024-09-13 11:12 | disposition home or self-care (01) ==
LOC: NCHCN 11:11
PROVIDERS: PCP Family Medicine; Visit Provider Family Medicine
DX: E06.3 Autoimmune thyroiditis (principal); D86.9 Sarcoidosis, unspecified; Z11.59 Encounter for screening for other viral diseases; Z00.00 Encounter for general adult medical examination without abnormal findings; I10 Essential (primary) hypertension
CPT/HCPCS: 80048; 80061; 86803; 83036; 84439; 84443; 85025

== ENCOUNTER 2024-12-20 12:05 | Outpatient (REF) | payer OTHER, SELFPAY ==
[2024-12-20 16:17] LABS: ALT 39 U/L (16-63); AST 21 U/L (15-37); Albumin 4.6 g/dL (3.4-5.0); Alkaline Phosphatase 61 U/L (46-116); Anion Gap 9.3 mmol/L (3-11); BUN 15 mg/dL (7-18); Bilirubin, Total 0.5 mg/dL (0.2-1.0); CO2 27.7 mmol/L (21.0-32.0); CREATININE 0.8 mg/dL (0.70-1.30); Calcium 9.5 mg/dL (8.5-10.1); Calculated LDL 88 mg/dL (<100); Chloride 103 mmol/L (98-107); Cholesterol 162 mg/dL (<200); Estimated GFR 103.87 (mL/min/1.73m2); FREE T4 1.56 ng/dL (0.76-1.46); Glucose 106 mg/dL (74-106); HDL Cholesterol 63 mg/dL (>or=40); Potassium 4.9 mmol/L (3.5-5.1); Sodium 140 mmol/L (136-145); TSH 0.02 uIU/mL (0.36-3.74); Total Protein 7.6 g/dL (6.4-8.2); Triglyceride 58 mg/dL (<150)
== END 2024-12-20 12:06 | disposition home or self-care (01) ==
LOC: NCHCN 12:05
PROVIDERS: PCP Family Medicine; Visit Provider Family Medicine
DX: E78.5 Hyperlipidemia, unspecified (principal); E06.3 Autoimmune thyroiditis
CPT/HCPCS: 80053; 80061; 84439; 84443

== ENCOUNTER 2025-01-03 01:06 | Outpatient (CLI) | payer OTHER, SELFPAY ==
[2025-01-07 12:04] LABS: Zinc, S 70 mcg/dL (60-106)
== END 2025-01-03 01:07 | disposition home or self-care (01) ==
LOC: LBO 01:06
PROVIDERS: PCP Family Medicine; Visit Provider Naturopath
DX: E83.2 Disorders of zinc metabolism (principal)
CPT/HCPCS: 36415; 84630

== ENCOUNTER 2025-01-24 01:45 | Outpatient (CLI) | payer OTHER, SELFPAY ==
--- NOTE | 2025-01-24 | DI.RAD_ITS ---
Exam(s) XR THUMB RT EXAM: XR THUMB RT CLINICAL HISTORY: PAIN RT THUMB, M79.644, RT 1ST MCP PAIN, DEGEN CHANGES. TECHNIQUE: 2D digital imaging was performed. Three views. COMPARISON: No exams were available for comparison FINDINGS: BONES: No acute fracture is present. No bony destructive lesion is seen. JOINTS: No dislocation present. There is moderate to severe narrowing of the 1st carpal metacarpal joint. There is some spurring from the trapezium. There is moderate to severe narrowing of the 1st metacarpophalangeal joint with mild periarticular spurring. There is mild narrowing of the interphalangeal joint of the thumb. There prominent spurs seen at the radial aspect of the joint. SOFT TISSUE: Normal. 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 DATA REPOSITORY: RADIATION DOSE DELIVERED:
== END 2025-01-24 02:05 ==
PROVIDERS: PCP Family Medicine; Visit Provider Family Medicine
DX: M19.041 Primary osteoarthritis, right hand (principal)
CPT/HCPCS: 73140

== ENCOUNTER 2025-02-28 13:09 | Outpatient (REF) | payer OTHER, SELFPAY ==
[2025-02-28 15:43] LABS: TSH 4.61 uIU/mL (0.36-3.74)
== END 2025-02-28 13:10 | disposition home or self-care (01) ==
LOC: NCHCN 13:09
PROVIDERS: PCP Family Medicine; Visit Provider Family Medicine
DX: E06.3 Autoimmune thyroiditis (principal)
CPT/HCPCS: 84439; 84443